=== PATIENT | male | born 1980 | race Hispanic/Latino ===

== ENCOUNTER 2017-05-23 13:18 | Emergency (ER) | payer MEDICARE, MEDICAID ==
[2017-05-23 13:47] VITALS: BP 140/92; PULSE 126; RESP 16; TEMP 97; O2SAT 97
--- NOTE | 2017-05-23 14:25 | ED PDOC ---
HPI: General Adult Time Seen by Provider: 05/23/17 14:09 Chief Complaint (Nursing): Upper Extremity Problem/Injury Chief Complaint (Provider): Tingling History Per: Patient History/Exam Limitations: no limitations Onset/Duration Of Symptoms: Days (Tues) Current Symptoms Are (Timing): Still Present Additional Complaint(s): Pt. is an alcoholic. Stopped drinking Saturday. Tues started getting tingling in fingers in both hands and both feet. No chest pain, dyspnea, weakness, headaches, leg pain, dizziness, abd pain, back pain. No drugs. No injury. Vision is clear. Past Medical History Vital Signs: Last Vital Signs Temp 97.0 F L 05/23/17 13:42 Pulse 126 H 05/23/17 13:42 Resp 16 05/23/17 13:42 BP 140/92 H 05/23/17 13:42 Pulse Ox 97 05/23/17 14:27 - Medical History PMH: Bipolar Disorder, HTN Denies: Diabetes, Hepatitis, HIV, Seizures, Sexually Transmitted Disease Other PMH: anxiety - Surgical History Surgical History: No Surg Hx - Family History Family History: States: Unknown Family Hx - Social History Current smoker - smoking cessation education provided: No Alcohol: > 2 Drinks/Day - Immunization History Hx Tetanus Toxoid Vaccination: No Hx Influenza Vaccination: No Hx Pneumococcal Vaccination: No - Home Medications Home Medications: Ambulatory Orders Medication Instructions Recorded Escitalopram [Lexapro] 20 mg PO DAILY 06/12/16 Losartan/Hydrochlorothiazide 1 tab PO DAILY 06/12/16 [Losartan Potassium-Hydrochlorothiazide 12.5 M] Naltrexone [Revia] 50 mg PO DAILY 06/12/16 Naproxen [Naprosyn] 500 mg PO DAILY 06/12/16 Zolpidem [Ambien] 5 mg PO HS PRN 06/12/16 amLODIPine [Norvasc] 5 mg PO DAILY 06/12/16 - Allergies Allergies/Adverse Reactions: Allergies Allergy/AdvReac Type Severity Reaction Status Date / Time No Known Allergies Allergy Verified 06/12/16 18:47 Review of Systems ROS Statement: Except As Marked, All Systems Reviewed And Found Negative Physical Exam - Reviewed Nursing Documentation Reviewed: Yes Vital Signs Reviewed: Yes - Physical Exam Appears: Positive for: Non-toxic, No Acute Distress Head Exam: Positive for: ATRAUMATIC, NORMAL INSPECTION, NORMOCEPHALIC Skin: Positive for: Normal Color, Warm, DRY Eye Exam: Positive for: EOMI, Normal appearance, PERRL ENT: Positive for: Normal ENT Inspection Neck: Positive for: Normal, Painless ROM, Supple Cardiovascular/Chest: Positive for: Chest Non Tender, Tachycardia (mild ). Negative for: Edema Respiratory: Positive for: CNT, Normal Breath Sounds Pulses-Radial (L): 2+ Pulses-Radial (R): 2+ Gastrointestinal/Abdominal: Positive for: Normal Exam, Bowel Sounds, Soft. Negative for: Tenderness Back: Positive for: Normal Inspection. Negative for: L CVA Tenderness, R CVA Tenderness Extremity: Positive for: Normal ROM. Negative for: Tenderness, Pedal Edema Neurologic/Psych: Positive for: Alert, target protection specialist II-XII, Oriented. Negative for: Motor/Sensory Deficits, Aphasia, Facial Droop - Laboratory Results Result Diagrams: 05/23/17 14:57 05/23/17 14:57 Interpretation Of Abn Labs: 3.2 k - ECG O2 Sat by Pulse Oximetry: 97 Pulse Ox Interpretation: Normal - Progress ED Course And Treament: 1552: Stable. AAOx3. Pain free. Liver enzymes elevated from chronic etoh abuse. Pt. aware to fu with pcp and gi. Tolerated po. Disposition - Clinical Impression Clinical Impression: Hypokalemia, Elevated liver enzymes, Paresthesia - Patient ED Disposition Is Patient to be Admitted: No Counseled Patient/Family Regarding: Studies Performed, Diagnosis, Need For Followup - Disposition Referrals: [facility] [Outside] - 05/24/17 Damon Escamilla MD [Medical Doctor] - 05/24/17 Disposition: Routine/Home Disposition Time: 15:30 Condition: STABLE Additional Instructions: You have elevated liver enzymes. Make sure to see the doctor without fail in 3 days. Return if not better in 3 days. Instructions: Paresthesias (DC), Hypokalemia (DC)
[2017-05-23] MEDS ORDERED: Lactated Ringer's 1,000 ML IV SCH (14:30)
[2017-05-23 15:12] LABS: BASO % 0.4 % (0.0-2.0); EOS % 0.5 % (0.0-4.0); LYMPH # 0.8 K/uL (1.0-4.3); LYMPH % 11.1 % (20.0-40.0); MEAN CELL VOLUME 90.2 fl (80.0-94.0); MEAN CORPUSCULAR HEMOGLOBIN 31.2 pg (27.0-31.0); MEAN CORPUSCULAR HGB CONC 34.5 g/dL (33.0-37.0); MEAN PLATELET VOLUME 7.9 fl (7.2-11.7); MONO # 0.8 K/uL (0.0-0.8); MONO % 11.3 % (0.0-10.0); NEUT # 5.8 K/uL (1.8-7.0); NEUT % 76.7 % (50.0-75.0); NRBC % 0.1 % (0.0-0.0); RBC 4.82 Mil/uL (4.40-5.90); RED CELL DISTRIBUTION WIDTH 13.3 % (11.5-14.5); WHITE BLOOD COUNT 7.5 K/uL (4.8-10.8)
[2017-05-23 15:29] LABS: ALB/GLOB RATIO 1.4 (1.0-2.1); ALT/SGPT 97 U/L (21-72); AST/SGOT 157 U/L (17-59); BLOOD UREA NITROGEN 12 mg/dl (9-20); CALCIUM 9.3 mg/dL (8.4-10.2); GFR AFRICAN-AMERICAN > 60; GFR NON-AFRICAN AMERICAN > 60; MAGNESIUM 1.6 MG/DL (1.6-2.3)
[2017-05-23] MEDS ORDERED: Potassium Chloride 20 mEq ER Tab PO STA (15:47)
[2017-05-23] MEDS ORDERED: Potassium Chloride 20 mEq ER Tab PO ONE ×2 (15:59→16:01)
[2017-05-23 16:05] LABS: BARBITURATES, UR NEGATIVE (NEGATIVE); BENZODIAZEPINES, UR NEGATIVE (NEGATIVE); OPIATES, UR NEGATIVE (NEGATIVE); PHENCYCLIDINE, UR NEGATIVE (NEGATIVE)
== END 2017-05-23 16:36 | disposition home or self-care (01) ==
LOC: H.ER 13:18
DX: R20.2 Paresthesia of skin (principal); E87.6 Hypokalemia; R94.5 Abnormal results of liver function studies; F31.9 Bipolar disorder, unspecified; F41.9 Anxiety disorder, unspecified; I10 Essential (primary) hypertension
CPT/HCPCS: 80053; 83735; 84100; 85025; 85610; 85730; 99281; G0480; J7120

== ENCOUNTER 2017-09-19 15:30 | Inpatient (IN) | payer MEDICARE, MEDICAID ==
--- NOTE | 2017-09-19 16:05 | ED PDOC ---
HPI: Seizure Time Seen by Provider: 09/19/17 15:44 Chief Complaint (Nursing): Seizure Chief Complaint (Provider): Seizure History Per: Patient History/Exam Limitations: no limitations Number Of Seizures: One Length Of Seizures (Duration): Unknown Associated Symptoms: Bit Tongue Additional Complaint(s): 37 year old male was reportedly found in the bathroom of a police station. Patient appears to be amnestic and states the last thing he remembers is using the restroom and thought to have had a seizure. Denies prior history of seizure. In addition, patient complains of headache and throat pain. Patient admits to drinking daily and does not remember when his last drink was. PMD: None Provided Past Medical History Reviewed: Historical Data, Nursing Documentation, Vital Signs Vital Signs: Last Vital Signs Temp 99 F 09/19/17 15:33 Pulse 112 H 09/19/17 15:33 Resp 19 09/19/17 15:33 BP 148/87 09/19/17 15:33 Pulse Ox 98 09/19/17 17:48 - Medical History PMH: Bipolar Disorder, HTN Denies: Diabetes, Hepatitis, HIV, Seizures, Sexually Transmitted Disease - Surgical History Surgical History: No Surg Hx - Family History Family History: States: Unknown Family Hx - Social History Alcohol: > 2 Drinks/Day Drugs: Denies - Immunization History Hx Tetanus Toxoid Vaccination: No Hx Influenza Vaccination: No Hx Pneumococcal Vaccination: No - Home Medications Home Medications: Ambulatory Orders Medication Instructions Recorded Escitalopram [Lexapro] 20 mg PO DAILY 06/12/16 Losartan/Hydrochlorothiazide 1 tab PO DAILY 06/12/16 [Losartan Potassium-Hydrochlorothiazide 12.5 M] Naltrexone [Revia] 50 mg PO DAILY 06/12/16 Naproxen [Naprosyn] 500 mg PO DAILY 06/12/16 Zolpidem [Ambien] 5 mg PO HS PRN 06/12/16 amLODIPine [Norvasc] 5 mg PO DAILY 06/12/16 - Allergies Allergies/Adverse Reactions: Allergies Allergy/AdvReac Type Severity Reaction Status Date / Time No Known Allergies Allergy Verified 09/19/17 15:33 Review of Systems ROS Statement: Except As Marked, All Systems Reviewed And Found Negative ENT: Positive for: Throat Pain Neurological: Positive for: Seizures, Headache Physical Exam - Reviewed Nursing Documentation Reviewed: Yes Vital Signs Reviewed: Yes - Physical Exam Appears: Positive for: Non-toxic, No Acute Distress Head Exam: Positive for: NORMAL INSPECTION (no scalp hematoma) Skin: Positive for: Normal Color, Warm, Dry Eye Exam: Positive for: Normal appearance, EOMI, PERRL ENT: Positive for: Other (contusion to the right tongue; admedus tonsillar pillars (right > left) with erythema) Neck: Positive for: Normal, Painless ROM, Supple Cardiovascular/Chest: Positive for: Tachycardia Respiratory: Positive for: Normal Breath Sounds. Negative for: Respiratory Distress Gastrointestinal/Abdominal: Positive for: Normal Exam, Soft. Negative for: Tenderness Back: Positive for: Normal Inspection. Negative for: L CVA Tenderness, R CVA Tenderness, Vertebral Tenderness Extremity: Positive for: Normal ROM. Negative for: Pedal Edema, Deformity Neurologic/Psych: Positive for: Alert, Oriented, Other (Poor insight and appears post-ictal) - Laboratory Results Result Diagrams: 09/19/17 16:30 09/19/17 16:30 - ECG ECG Rhythm: Positive for: Sinus Tachycardia Rate: 112 O2 Sat by Pulse Oximetry: 98 (RA) Pulse Ox Interpretation: Normal Medical Decision Making Medical Decision Making: -- Workup for possible new onset seizure. -- evaluate for pharyngitis, rule out DEMI CHEF. Time: 1618 CXR RESULTS FINDINGS: LUNGS: The lungs are clear. PLEURA: No significant pleural effusion identified, no pneumothorax apparent. CARDIOVASCULAR: Normal. OSSEOUS STRUCTURES: No significant abnormalities. VISUALIZED UPPER ABDOMEN: Normal. OTHER FINDINGS: There is severe gaseous distension of the left hemicolon. IMPRESSION: No active pulmonary disease. Severe gaseous distension of the left hemicolon. Clinical follow-up is advised. Time: [address] RESULTS FINDINGS: HEMORRHAGE: No intracranial hemorrhage. BRAIN: Evaluation is limited due to extensive beam hardening artifacts. Castelan-white matter differentiation is preserved. There is no mass, mass effect or abnormal extra-axial fluid collection. There is no territorial infarction. VENTRICLES: There is mild is advanced global parenchymal volume loss and proportionate enlargement of the ventricles and cortical sulci. CALVARIUM: There is no calvarial fracture or extracranial soft tissue swelling. PARANASAL SINUSES: Predominantly clear. MASTOID AIR CELLS: Predominantly clear. OTHER FINDINGS: None. IMPRESSION: Limited evaluation due to extensive beam hardening artifacts. No acute intracranial abnormality. Mild age advanced global parenchymal volume loss. Time: [address] SPINE RESULTS FINDINGS: VERTEBRAE: There is mild reversal of normal cervical lordosis with cervical kyphosis. Vertebral alignment is normal. There is no acute fracture or traumatic anterior listhesis. The craniocervical junction is normal. The atlantoaxial joint is normal. Bone mineralization is normal. DISCS/SPINAL CANAL/NEURAL FORAMINA: There is mild multilevel degenerative disc disease due to combination of disc osteophyte complexes, uncovertebral joint hypertrophy and multilevel facet arthropathy without significant neural foraminal or spinal canal stenosis. PARASPINAL SOFT TISSUES: Normal. No prevertebral soft tissue thickening. OTHER FINDINGS: No apical pneumothorax. IMPRESSION: No acute fracture or traumatic anterior listhesis. Mild reversal of normal cervical lordosis which may be positional, related to muscle spasm or ligamentous injury. Scribe Attestation: Documented by Iwona Vuong, acting as a scribe for Dr. Matthieu Chung III. Provider Scribe Attestation: All medical record entries made by the Scribe were at my direction and personally dictated by me. I have reviewed the chart and agree that the record accurately reflects my personal performance of the history, physical exam, medical decision making, and the department course for this patient. I have also personally directed, reviewed and agree with the discharge instructions and disposition. Disposition - Disposition Forms: [employer] (Slovenian)
--- NOTE | 2017-09-19 16:20 | RAD ---
HISTORY: SOB COMPARISON: No prior. FINDINGS: LUNGS: The lungs are clear. PLEURA: No significant pleural effusion identified, no pneumothorax apparent. CARDIOVASCULAR: Normal. OSSEOUS STRUCTURES: No significant abnormalities. VISUALIZED UPPER ABDOMEN: Normal. OTHER FINDINGS: There is severe gaseous distension of the left hemicolon. IMPRESSION: No active pulmonary disease. Severe gaseous distension of the left hemicolon. Clinical follow-up is advised.
[2017-09-19 16:42] LABS: BASO % 0.3 % (0.0-2.0); HEMOGLOBIN 14.6 g/dL (12.0-18.0); LYMPH # 0.2 K/uL (1.0-4.3); LYMPH % 2.6 % (20.0-40.0); MEAN CELL VOLUME 89.8 fl (80.0-94.0); MEAN CORPUSCULAR HEMOGLOBIN 31.1 pg (27.0-31.0); MEAN CORPUSCULAR HGB CONC 34.6 g/dL (33.0-37.0); MEAN PLATELET VOLUME 7.4 fl (7.2-11.7); MONO # 0.5 K/uL (0.0-0.8); NEUT # 7.5 K/uL (1.8-7.0); NEUT % 91.1 % (50.0-75.0); PLATELET COUNT 132 K/uL (130-400); RBC 4.71 Mil/uL (4.40-5.90); RED CELL DISTRIBUTION WIDTH 16.6 % (11.5-14.5); WHITE BLOOD COUNT 8.3 K/uL (4.8-10.8)
--- NOTE | 2017-09-19 16:43 | CT ---
PROCEDURE: CT HEAD WITHOUT CONTRAST. HISTORY: r/o ICH COMPARISON: None available. TECHNIQUE: Axial computed tomography images were obtained through the head/brain without intravenous contrast. Radiation dose: Total exam DLP = 1063.82 mGy-cm. This CT exam was performed using one or more of the following dose reduction techniques: Automated exposure control, adjustment of the mA and/or kV according to patient size, and/or use of iterative reconstruction technique. FINDINGS: HEMORRHAGE: No intracranial hemorrhage. BRAIN: Evaluation is limited due to extensive beam hardening artifacts. Castelan-white matter differentiation is preserved. There is no mass, mass effect or abnormal extra-axial fluid collection. There is no territorial infarction. VENTRICLES: There is mild is advanced global parenchymal volume loss and proportionate enlargement of the ventricles and cortical sulci. CALVARIUM: There is no calvarial fracture or extracranial soft tissue swelling. PARANASAL SINUSES: Predominantly clear. MASTOID AIR CELLS: Predominantly clear. OTHER FINDINGS: None. IMPRESSION: Limited evaluation due to extensive beam hardening artifacts. No acute intracranial abnormality. Mild age advanced global parenchymal volume loss.
--- NOTE | 2017-09-19 16:46 | CT ---
PROCEDURE: CT Cervical Spine without contrast HISTORY: trauma r/o fx COMPARISON: None available. TECHNIQUE: Axial computed tomography images were obtained of the cervical spine without the use of intravenous contrast. Coronal and sagittal reformatted images were created and reviewed. Radiation dose: Total exam DLP = 411.42 mGy-cm. This CT exam was performed using one or more of the following dose reduction techniques: Automated exposure control, adjustment of the mA and/or kV according to patient size, and/or use of iterative reconstruction technique. FINDINGS: VERTEBRAE: There is mild reversal of normal cervical lordosis with cervical kyphosis. Vertebral alignment is normal. There is no acute fracture or traumatic anterior listhesis. The craniocervical junction is normal. The atlantoaxial joint is normal. Bone mineralization is normal. DISCS/SPINAL CANAL/NEURAL FORAMINA: There is mild multilevel degenerative disc disease due to combination of disc osteophyte complexes, uncovertebral joint hypertrophy and multilevel facet arthropathy without significant neural foraminal or spinal canal stenosis. PARASPINAL SOFT TISSUES: Normal. No prevertebral soft tissue thickening. OTHER FINDINGS: No apical pneumothorax. IMPRESSION: No acute fracture or traumatic anterior listhesis. Mild reversal of normal cervical lordosis which may be positional, related to muscle spasm or ligamentous injury.
[2017-09-19 16:52] LABS: ALB/GLOB RATIO 1.3 (1.0-2.1); ALBUMIN 4.9 g/dL (3.5-5.0); ALT/SGPT 64 U/L (21-72); AST/SGOT 116 U/L (17-59); BLOOD UREA NITROGEN 9 mg/dl (9-20); CALCIUM 9.4 mg/dL (8.4-10.2); GFR AFRICAN-AMERICAN > 60; GFR NON-AFRICAN AMERICAN > 60
[2017-09-19 16:56] LABS: PARTIAL THROMBOPLASTIN TIME 26.9 Seconds (25.6-37.1); PROTHROMBIN TIME 10.8 Seconds (9.8-13.1)
[2017-09-19 17:27] LABS: BARBITURATES, UR NEGATIVE (NEGATIVE); BENZODIAZEPINES, UR NEGATIVE (NEGATIVE); OPIATES, UR NEGATIVE (NEGATIVE); PHENCYCLIDINE, UR NEGATIVE (NEGATIVE)
[2017-09-19] MEDS ORDERED: Sodium Chloride 0.9% 50 ML IV ONE (18:14)
[2017-09-19] MEDS ORDERED: Iohexol 300 100 ML IJ ONE (18:14)
[2017-09-19 19:51] LABS: BANDS 4 % (0-2); LYMPHOCYTE 4 % (20-50); MONOCYTE 6 % (0-10); NEUTROPHIL 86 % (42-75); PLATELET ESTIMATE NORMAL (NORMAL); TOTAL CELLS COUNTED 100
[2017-09-19 19:52] LABS: HYPOCHROMIC SLIGHT; SMUDGE CELLS PRESENT; TOXIC GRANULATION PRESENT
[2017-09-19] MEDS ORDERED: Patient's Own Med (Losartan/Hydrochlorothiazide [Hyzaar 100-12.5 Tablet] 1 TAB) PO SCH (22:00)
[2017-09-19] MEDS: Sodium Chloride 0.9% 1,000 ML IV SCH (22:26)
[2017-09-20] MEDS ORDERED: Phenytoin 100 mg/2 ml Inj ONE (01:12)
[2017-09-20] MEDS: Phenytoin 100 mg/2 ml Inj IVP SCH ×3 (01:15→16:27)
[2017-09-20 05:43] LABS: HEMOGLOBIN 14.5 g/dL (12.0-18.0); MEAN CELL VOLUME 90.9 fl (80.0-94.0); MEAN CORPUSCULAR HEMOGLOBIN 30.9 pg (27.0-31.0); RBC 4.71 Mil/uL (4.40-5.90); RED CELL DISTRIBUTION WIDTH 16.1 % (11.5-14.5); WHITE BLOOD COUNT 6.2 K/uL (4.8-10.8)
[2017-09-20 06:12] LABS: LDL CHOLESTEROL 92 mg/dL (0-129)
[2017-09-20 06:13] LABS: T4 6.42 ug/dl (5.5-11.0)
[2017-09-20 06:27] LABS: T3 0.859 nmol/L (1.49-2.60)
[2017-09-20 06:31] LABS: ALB/GLOB RATIO 1.2 (1.0-2.1); ALBUMIN 4.5 g/dL (3.5-5.0); ALT/SGPT 56 U/L (21-72); AST/SGOT 111 U/L (17-59); BLOOD UREA NITROGEN 7 mg/dl (9-20); CALCIUM 9.3 mg/dL (8.4-10.2); GFR AFRICAN-AMERICAN > 60; GFR NON-AFRICAN AMERICAN > 60; HDL CHOLESTEROL 140 MG/DL (30-70)
[2017-09-20] MEDS: Omega-3-Acid Ethyl Esters 1 GM Cap PO SCH ×2 (08:10→21:14)
--- NOTE | 2017-09-20 08:27 | CT ---
PROCEDURE: CT NECK WITH CONTRAST HISTORY: dysphagia. throat pain COMPARISON: Cervical spine CT without contrast 09/19/2017. TECHNIQUE: CT of the neck with intravenous contrast. Coronal and sagittal reformats generated. Intravenous contrast dose: Omnipaque 300, 80 cc Radiation dose: DLP 473.29 mGy-cm This CT exam was performed using one or more of the following dose reduction techniques: Automated exposure control, adjustment of the mA and/or kV according to patient size, and/or use of iterative reconstruction technique. FINDINGS: NASOPHARYNX: Unremarkable. SUPRAHYOID NECK: Limited motion artifact obscures the upper oropharynx. Unremarkable, oral cavity, parapharyngeal space and retropharyngeal space. INFRAHYOID NECK: Unremarkable larynx, hypopharynx, and supraglottic space. Vocal cords intact. MASS: None identified. GLANDS: Parotid and submandibular glands unremarkable. Normal size thyroid gland, without nodule. LYMPH NODES: Mild bilateral lymphadenopathy is appreciated including a 2.4 x 1.3 cm right jugular digastric lymph node and a left jugulodigastric lymph node measuring 2.5 x 1.0. CERVICAL SPINE: Reversal cervical curvature with limited anterior spondylosis at the mid cervical spine. See separate cervical spine CT report 09/20/2015. VASCULAR STRUCTURES: Unremarkable. OTHER FINDINGS: None. IMPRESSION: Limited lymphadenopathy as discussed above, at the bilateral jugulodigastric distribution. Limited motion artifact obscures the upper or fracture of the remainder of the supra and infrahyoid neck appear unremarkable no gross mass identified. Reversal of cervical curvature is appreciated.
--- NOTE | 2017-09-20 08:43 | CP.PCM.HP ---
History of Present Illness - History of Present Illness History of Present Illness: CC: new onset seizures HPI: 37 y/o man w/ pmh of HTN and bipolar disorder presented to the ED s/p new onset seizures. Patient has no recollection of event. Prior to seizure patient reports he went to police precinct because he wanted help. Patient says he then went to the bathroom and felt his head started to hurt and then no memory of what happened afterwards. Patient awoke noticed that he bit his tongue but denies urinary or bowel incontinence. Patient denies previous history of seizure. Patient reports drinking alcohol daily consisting of beer and some liquor. Patient reports binge drinking the day before the seizure occurred. Patient currently reports drowsiness and tongue pain after biting his tongue during seizure episode. The patient currently denies headaches, chest pain, SOB, abdominal pain, nausea, vomiting, diarrhea, dysuria, or fever. PMD: Dr. Jean PMH: HTN and bipolar disorder meds: see med list allergies: NKDA PSH: cardiac surgery as an Fam: mother HTN, father murdered in [place] when patient was 15, unsure of family history of seizure/epilepsy SOC: denies smoking and drugs, drinking alcohol daily with binge drinking episodes (last binge drink episode 1 day prior to seizure) ROS: 12 points assessed and negative unless otherwise reported in HPI Patient seen and examined this morning at bedside w/ Dr. Martinez Present on Admission - Present on Admission Any Indicators Present on Admission: No History of DVT/PE: No History of Uncontrolled Diabetes: No Urinary Catheter: No Decubitus Ulcer Present: No Review of Systems - Review of Systems All systems: reviewed and no additional remarkable complaints except - Constitutional Constitutional: absent: Chills, Fever - EENT Eyes: absent: Change in Vision Additional comments: tongue pain - Cardiovascular Cardiovascular: absent: Chest Pain - Respiratory Respiratory: absent: Dyspnea - Gastrointestinal Gastrointestinal: absent: Abdominal Pain, Diarrhea, Nausea, Vomiting - Genitourinary Genitourinary: absent: Dysuria - Integumentary Integumentary: absent: Rash - Neurological Neurological: absent: Dizziness, Headaches Past Patient History - Infectious Disease Hx of Infectious Diseases: None - Past Social History Smoking Status: Never Smoked - CARDIAC Hx Cardiac Disorders: Yes Hx Hypercholesterolemia: Yes Hx Hypertension: Yes - PULMONARY Hx Tuberculosis: No - NEUROLOGICAL Hx Seizures: Yes (new onset 09/19/17) - HEMATOLOGICAL/ONCOLOGICAL Hx Human Immunodeficiency Virus (HIV): No - MUSCULOSKELETAL/RHEUMATOLOGICAL Hx Falls: Yes - GENITOURINARY/GYNECOLOGICAL Hx Sexually Transmitted Disorders: No - PSYCHIATRIC Hx Anxiety: Yes Hx Bipolar Disorder: Yes Hx Substance Use: No - SURGICAL HISTORY Hx Surgeries: Yes Other/Comment: cardiac sx as a child - ANESTHESIA Hx Anesthesia: Yes Hx Anesthesia Reactions: No Meds Allergies/Adverse Reactions: Allergies Allergy/AdvReac Type Severity Reaction Status Date / Time No Known Allergies Allergy Verified 09/19/17 15:33 Physical Exam - Constitutional Appears: Non-toxic, No Acute Distress - Head Exam Head Exam: ATRAUMATIC, NORMAL INSPECTION, NORMOCEPHALIC - Eye Exam Eye Exam: Normal appearance - ENT Exam ENT Exam: Mucous Membranes Moist Additional comments: self inflicted laceration of tongue on right side s/p seizure - Neck Exam Neck exam: Positive for: Full Rom. Negative for: Tenderness - Respiratory Exam Respiratory Exam: Clear to Auscultation Bilateral. absent: Accessory Muscle Use , Decreased Breath Sounds, Rales, Rhonchi, Wheezes, Respiratory Distress - Cardiovascular Exam Cardiovascular Exam: REGULAR RHYTHM. absent: Tachycardia - GI/Abdominal Exam GI & Abdominal Exam: Normal Bowel Sounds, Soft. absent: Distended, Tenderness - Extremities Exam Extremities exam: Negative for: calf tenderness - Neurological Exam Neurological exam: Alert, CN II-XII Intact, Normal Gait, Oriented x3 - Skin Skin Exam: Dry, Normal Color, Warm Results - Vital Signs Recent Vital Signs: Last Vital Signs Temp 98.6 F 09/20/17 07:58 Pulse 83 09/20/17 08:11 Resp 18 09/20/17 07:58 BP 140/95 H 09/20/17 08:11 Pulse Ox 98 09/20/17 07:58 - Labs Result Diagrams: 09/20/17 04:50 09/20/17 04:50 Labs: Laboratory Results - last 24 hr 09/19/17 09/19/17 09/19/17 15:56 16:30 16:30 WBC 8.3 RBC 4.71 Hgb 14.6 Hct 42.3 MCV 89.8 MCH 31.1 H MCHC 34.6 RDW 16.6 H Plt Count 132 MPV 7.4 Neut % (Auto) 91.1 H Lymph % (Auto) 2.6 L [place] % (Auto) 6.0 Eos % (Auto) 0.0 Baso % (Auto) 0.3 Neut # (Auto) 7.5 H Lymph # (Auto) 0.2 L [place] # (Auto) 0.5 Eos # (Auto) 0.0 Baso # (Auto) 0.0 Neutrophils % (Manual) 86 H Band Neutrophils % 4 H Lymphocytes % (Manual) 4 L Monocytes % (Manual) 6 Smudge Cells Present Toxic Granulation Present Platelet Estimate Normal Hypochromasia (manual) Slight PT INR APTT Sodium 131 L Potassium 3.3 L Chloride 90 L Carbon Dioxide 28 Anion Gap 16 BUN 9 Creatinine 0.9 Est GFR ( Amer) > 60 Est GFR (Non-Af Amer) > 60 POC Glucose (mg/dL) 196 H Random Glucose 167 H Calcium 9.4 Total Bilirubin 3.8 H AST 116 H D ALT 64 Alkaline Phosphatase 108 Troponin I 0.1220 H* Total Protein 8.8 H Albumin 4.9 Globulin 3.9 Albumin/Globulin Ratio 1.3 Triglycerides Cholesterol LDL Cholesterol Direct HDL Cholesterol Vitamin B12 Thyroxine (T4) Total T3 TSH 3rd Generation Urine Opiates Screen Urine Methadone Screen Ur Barbiturates Screen Ur Phencyclidine Scrn Ur Amphetamines Screen U Benzodiazepines Scrn U Oth Cocaine Metabols U Cannabinoids Screen Alcohol, Quantitative < 10 09/19/17 09/19/17 09/19/17 16:30 16:50 23:03 WBC RBC Hgb Hct MCV MCH MCHC RDW Plt Count MPV Neut % (Auto) Lymph % (Auto) [place] % (Auto) Eos % (Auto) Baso % (Auto) Neut # (Auto) Lymph # (Auto) [place] # (Auto) Eos # (Auto) Baso # (Auto) Neutrophils % (Manual) Band Neutrophils % Lymphocytes % (Manual) Monocytes % (Manual) Smudge Cells Toxic Granulation Platelet Estimate Hypochromasia (manual) PT 10.8 INR 1.0 APTT 26.9 Sodium Potassium Chloride Carbon Dioxide Anion Gap BUN Creatinine Est GFR ( Amer) Est GFR (Non-Af Amer) POC Glucose (mg/dL) Random Glucose Calcium Total Bilirubin AST ALT Alkaline Phosphatase Troponin I 0.0830 Total Protein Albumin Globulin Albumin/Globulin Ratio Triglycerides Cholesterol LDL Cholesterol Direct HDL Cholesterol Vitamin B12 Thyroxine (T4) Total T3 TSH 3rd Generation Urine Opiates Screen Negative Urine Methadone Screen Negative Ur Barbiturates Screen Negative Ur Phencyclidine Scrn Negative Ur Amphetamines Screen Negative U Benzodiazepines Scrn Negative U Oth Cocaine Metabols Negative U Cannabinoids Screen Negative Alcohol, Quantitative 09/20/17 09/20/17 09/20/17 04:50 04:50 05:47 WBC 6.2 RBC 4.71 Hgb 14.5 Hct 42.8 MCV 90.9 MCH 30.9 MCHC 34.0 RDW 16.1 H Plt Count 130 MPV Neut % (Auto) Lymph % (Auto) [place] % (Auto) Eos % (Auto) Baso % (Auto) Neut # (Auto) Lymph # (Auto) [place] # (Auto) Eos # (Auto) Baso # (Auto) Neutrophils % (Manual) Band Neutrophils % Lymphocytes % (Manual) Monocytes % (Manual) Smudge Cells Toxic Granulation Platelet Estimate Hypochromasia (manual) PT INR APTT Sodium 134 Potassium 2.9 L Chloride 96 L Carbon Dioxide 25 Anion Gap 16 BUN 7 L Creatinine 0.8 Est GFR ( Amer) > 60 Est GFR (Non-Af Amer) > 60 POC Glucose (mg/dL) Random Glucose 90 Calcium 9.3 Total Bilirubin 3.9 H AST 111 H ALT 56 Alkaline Phosphatase 93 Troponin I 0.0430 Total Protein 8.2 Albumin 4.5 Globulin 3.7 Albumin/Globulin Ratio 1.2 Triglycerides 78 Cholesterol 275 H LDL Cholesterol Direct 92 HDL Cholesterol 140 H Vitamin B12 434 Thyroxine (T4) 6.42 Total T3 0.859 L TSH 3rd Generation 3.94 Urine Opiates Screen Urine Methadone Screen Ur Barbiturates Screen Ur Phencyclidine Scrn Ur Amphetamines Screen U Benzodiazepines Scrn U Oth Cocaine Metabols U Cannabinoids Screen Alcohol, Quantitative Assessment & Plan (1) New onset seizure Status: Acute (2) Hypokalemia Status: Acute (3) HTN (hypertension) Status: Chronic (4) Bipolar disorder Status: Chronic - Assessment and Plan (Free Text) Plan: afebrile, non-tachycardic, normotensive Neurology consult ordered Cardiology consult ordered EKG: sinus tachycardia, no acute ST elevation/depression CXR: no active cardiolpulmonary disease process CT head: no acute intracranial hemorrhage or abnormality CT cervical spine: no acute fracture or trauma CT soft tissue neck: mild bilateral lymphadenopathy CBC and PT/INR/aPTT WNL CMP: 134/2.9, 96/25, 7/0.8, glucose 90, [id number], ALT 56, alk phos 93 troponin 1st 0.1220, 2nd 0.0830, 3rd 0.0430 CPK: 655 alcohol level <10 urine toxicology negative phenytoin 100 mg IV Q8h IVF NS 1L @ 80 mL/hr c/w home medication f/u CBC, CMP, CPK, phenytoin level in AM prophylactic measures: DVT SCDs monitor for acute changes seizure precautions monitor for alcohol withdrawal
[2017-09-20] MEDS: Potassium Chloride 20 mEq ER Tab PO SCH ×2 (09:07→16:28)
[2017-09-20] MEDS: Mag&Al/Simet/Diphen/Lido 237 ML KIT PO SCH ×3 (09:08→21:16)
[2017-09-20] MEDS: Sodium Chloride 0.9% 1,000 ML IV SCH ×3 (10:15→21:16)
--- NOTE | 2017-09-20 11:10 | CARD ---
APPROVED REPORT EKG Measurement Heart [id number] <Conclusion> Normal sinus rhythm Nonspecific T wave abnormality Abnormal ECG
--- NOTE | 2017-09-20 15:19 | CP.PCM.CON ---
History of Present Illness - History of Present Illness History of Present Illness: Consultation for possible syncope vs. seizures / hx of cardiac surgery HPI: Review of Systems - Review of Systems Systems not reviewed;Unavailable: Acuity of Condition - Constitutional Constitutional: As Per HPI - EENT Eyes: As Per HPI Ears: As Per HPI Nose/Mouth/Throat: As Per HPI - Cardiovascular Cardiovascular: As Per HPI - Respiratory Respiratory: As Per HPI - Gastrointestinal Gastrointestinal: As Per HPI - Genitourinary Genitourinary: As Per HPI - Reproductive: Male Reproductive:Male: As Per HPI - Musculoskeletal Musculoskeletal: As Per HPI - Integumentary Integumentary: As Per HPI - Neurological Neurological: As Per HPI - Psychiatric Psychiatric: As Per HPI - Endocrine Endocrine: As Per HPI - Hematologic/Lymphatic Hematologic: As Per HPI Past Patient History - Infectious Disease Hx of Infectious Diseases: None - Past Social History Smoking Status: Never Smoked - CARDIAC Hx Cardiac Disorders: Yes Hx Hypercholesterolemia: Yes Hx Hypertension: Yes - PULMONARY Hx Tuberculosis: No - NEUROLOGICAL Hx Seizures: Yes (new onset 09/19/17) - HEMATOLOGICAL/ONCOLOGICAL Hx Human Immunodeficiency Virus (HIV): No - MUSCULOSKELETAL/RHEUMATOLOGICAL Hx Falls: Yes - GENITOURINARY/GYNECOLOGICAL Hx Sexually Transmitted Disorders: No - PSYCHIATRIC Hx Anxiety: Yes Hx Bipolar Disorder: Yes Hx Substance Use: No - SURGICAL HISTORY Hx Surgeries: Yes Other/Comment: cardiac sx as a child - ANESTHESIA Hx Anesthesia: Yes Hx Anesthesia Reactions: No Meds Allergies/Adverse Reactions: Allergies Allergy/AdvReac Type Severity Reaction Status Date / Time No Known Allergies Allergy Verified 09/19/17 15:33 - Medications Medications: Current Medications Acetaminophen (Tylenol 325mg Tab) 650 mg PO Q6 PRN PRN Reason: pain,temp Last Admin: 09/19/17 22:26 Dose: 650 mg Amlodipine Besylate (Norvasc) 10 mg PO DAILY [facility] Last Admin: 09/20/17 08:11 Dose: 10 mg Atorvastatin Calcium (Lipitor) 40 mg PO DAILY [facility] Last Admin: 09/20/17 09:09 Dose: 40 mg Chlordiazepoxide (Librium) 50 mg PO Q8 [facility] Last Admin: 09/20/17 10:13 Dose: 50 mg Clonazepam (Klonopin) 0.5 mg PO HS [facility] Last Admin: 09/19/17 22:26 Dose: 0.5 mg Hydrochlorothiazide (Microzide) 12.5 mg PO DAILY [facility] Last Admin: 09/20/17 08:11 Dose: 12.5 mg Sodium Chloride (Sodium Chloride 0.9%) 1,000 mls @ 125 mls/hr IV .Q8H [facility] Stop: 09/20/17 21:59 Last Admin: 09/20/17 13:03 Dose: 125 mls/hr Lidocaine HCl (Lidocaine 2% Viscous) 15 ml PO Q6 [facility] Stop: 09/20/17 22:01 Last Admin: 09/20/17 10:12 Dose: 15 ml Losartan Potassium (Cozaar) 100 mg PO DAILY [facility] Last Admin: 09/20/17 08:11 Dose: 100 mg [id number] Ethyl Esters (Lovaza) 2 gm PO Q12 [facility] Last Admin: 09/20/17 08:10 Dose: 2 gm Phenytoin (Dilantin) 100 mg IVP Q8 [facility] Last Admin: 09/20/17 08:13 Dose: 100 mg Potassium Chloride (K-Dur 20 Meq Er Tab) 20 meq PO BID [facility] Last Admin: 09/20/17 09:07 Dose: 20 meq Risperidone (Risperdal Tab) 2 mg PO DAILY [facility] Last Admin: 09/20/17 08:11 Dose: 2 mg Saliva Substitute (First Magic Mouthwash) 10 ml PO Q6 [facility] Last Admin: 09/20/17 09:08 Dose: 10 ml Physical Exam - Constitutional Appears: Well - Head Exam Head Exam: ATRAUMATIC, NORMAL INSPECTION, NORMOCEPHALIC - Eye Exam Eye Exam: EOMI, Normal appearance, PERRL Pupil Exam: NORMAL ACCOMODATION, PERRL - ENT Exam ENT Exam: Mucous Membranes Moist, Normal Exam - Neck Exam Neck exam: Positive for: Normal Inspection - Respiratory Exam Respiratory Exam: Clear to Auscultation Bilateral, NORMAL BREATHING PATTERN - Cardiovascular Exam Cardiovascular Exam: REGULAR RHYTHM, +S1 - GI/Abdominal Exam GI & Abdominal Exam: Normal Bowel Sounds, Soft. absent: Tenderness - Extremities Exam Extremities exam: Positive for: normal inspection - Back Exam Back exam: NORMAL INSPECTION - Neurological Exam Neurological exam: Alert, CN II-XII Intact, Normal Gait, Oriented x3, Reflexes Normal - Psychiatric Exam Psychiatric exam: Normal Affect, Normal Mood - Skin Skin Exam: Dry, Intact, Normal Color, Warm Results - Vital Signs Recent Vital Signs: Last Vital Signs Temp 98.6 F 06/15/18 07:58 Pulse 83 09/20/17 08:11 Resp 18 09/20/17 07:58 BP 140/95 H 09/20/17 08:11 Pulse Ox 98 09/20/17 07:58 - Labs Result Diagrams: 09/20/17 04:50 09/20/17 04:50 Labs: Laboratory Results - last 24 hr 09/19/17 09/19/17 09/19/17 15:56 16:30 16:30 WBC 8.3 RBC 4.71 Hgb 14.6 Hct 42.3 MCV 89.8 MCH 31.1 H MCHC 34.6 RDW 16.6 H Plt Count 132 MPV 7.4 Neut % (Auto) 91.1 H Lymph % (Auto) 2.6 L Finney % (Auto) 6.0 Eos % (Auto) 0.0 Baso % (Auto) 0.3 Neut # (Auto) 7.5 H Lymph # (Auto) 0.2 L Finney # (Auto) 0.5 Eos # (Auto) 0.0 Baso # (Auto) 0.0 Neutrophils % (Manual) 86 H Band Neutrophils % 4 H Lymphocytes % (Manual) 4 L Monocytes % (Manual) 6 Smudge Cells Present Toxic Granulation Present Platelet Estimate Normal Hypochromasia (manual) Slight PT INR APTT Sodium 131 L Potassium 3.3 L Chloride 90 L Carbon Dioxide 28 Anion Gap 16 BUN 9 Creatinine 0.9 Est GFR ( Amer) > 60 Est GFR (Non-Af Amer) > 60 POC Glucose (mg/dL) 196 H Random Glucose 167 H Calcium 9.4 Total Bilirubin 3.8 H AST 116 H D ALT 64 Alkaline Phosphatase 108 Total Creatine Kinase Troponin I 0.1220 H* Total Protein 8.8 H Albumin 4.9 Globulin 3.9 Albumin/Globulin Ratio 1.3 Triglycerides Cholesterol LDL Cholesterol Direct HDL Cholesterol Vitamin B12 Thyroxine (T4) Total T3 TSH 3rd Generation Urine Opiates Screen Urine Methadone Screen Ur Barbiturates Screen Ur Phencyclidine Scrn Ur Amphetamines Screen U Benzodiazepines Scrn U Oth Cocaine Metabols U Cannabinoids Screen Alcohol, Quantitative < 10 09/19/17 09/19/17 09/19/17 16:30 16:50 23:03 WBC RBC Hgb Hct MCV MCH MCHC RDW Plt Count MPV Neut % (Auto) Lymph % (Auto) Finney % (Auto) Eos % (Auto) Baso % (Auto) Neut # (Auto) Lymph # (Auto) Finney # (Auto) Eos # (Auto) Baso # (Auto) Neutrophils % (Manual) Band Neutrophils % Lymphocytes % (Manual) Monocytes % (Manual) Smudge Cells Toxic Granulation Platelet Estimate Hypochromasia (manual) PT 10.8 INR 1.0 APTT 26.9 Sodium Potassium Chloride Carbon Dioxide Anion Gap BUN Creatinine Est GFR ( Amer) Est GFR (Non-Af Amer) POC Glucose (mg/dL) Random Glucose Calcium Total Bilirubin AST ALT Alkaline Phosphatase Total Creatine Kinase Troponin I 0.0830 Total Protein Albumin Globulin Albumin/Globulin Ratio Triglycerides Cholesterol LDL Cholesterol Direct HDL Cholesterol Vitamin B12 Thyroxine (T4) Total T3 TSH 3rd Generation Urine Opiates Screen Negative Urine Methadone Screen Negative Ur Barbiturates Screen Negative Ur Phencyclidine Scrn Negative Ur Amphetamines Screen Negative U Benzodiazepines Scrn Negative U Oth Cocaine Metabols Negative U Cannabinoids Screen Negative Alcohol, Quantitative 09/20/17 09/20/17 09/20/17 04:50 04:50 05:47 WBC 6.2 RBC 4.71 Hgb 14.5 Hct 42.8 MCV 90.9 MCH 30.9 MCHC 34.0 RDW 16.1 H Plt Count 130 MPV Neut % (Auto) Lymph % (Auto) Finney % (Auto) Eos % (Auto) Baso % (Auto) Neut # (Auto) Lymph # (Auto) Finney # (Auto) Eos # (Auto) Baso # (Auto) Neutrophils % (Manual) Band Neutrophils % Lymphocytes % (Manual) Monocytes % (Manual) Smudge Cells Toxic Granulation Platelet Estimate Hypochromasia (manual) PT INR APTT Sodium 134 Potassium 2.9 L Chloride 96 L Carbon Dioxide 25 Anion Gap 16 BUN 7 L Creatinine 0.8 Est GFR ( Amer) > 60 Est GFR (Non-Af Amer) > 60 POC Glucose (mg/dL) Random Glucose 90 Calcium 9.3 Total Bilirubin 3.9 H AST 111 H ALT 56 Alkaline Phosphatase 93 Total Creatine Kinase 665 H Troponin I 0.0430 Total Protein 8.2 Albumin 4.5 Globulin 3.7 Albumin/Globulin Ratio 1.2 Triglycerides 78 Cholesterol 275 H LDL Cholesterol Direct 92 HDL Cholesterol 140 H Vitamin B12 434 Thyroxine (T4) 6.42 Total T3 0.859 L TSH 3rd Generation 3.94 Urine Opiates Screen Urine Methadone Screen Ur Barbiturates Screen Ur Phencyclidine Scrn Ur Amphetamines Screen U Benzodiazepines Scrn U Oth Cocaine Metabols U Cannabinoids Screen Alcohol, Quantitative Assessment & Plan (1) Status post cardiac surgery Assessment and Plan: echo Status: Acute (2) New onset seizure Assessment and Plan: orthostatics Status: Acute (3) HTN (hypertension) Status: Chronic (4) Dyslipidemia Status: Acute
[2017-09-20] MEDS ORDERED: Gadodiamide 287 MG/ML VIAL (15ML) IV ONE (17:39)
--- NOTE | 2017-09-20 19:03 | CON ---
DATE: 09/20/2017 CHIEF COMPLAINT: New-onset seizure. HISTORY OF PRESENT ILLNESS: This is a 37-year-old man with history of hypertension, bipolar disorder, chronic ETOH abuse, had new-onset seizure when he went to the bathroom and his head was starting to hurt and do not remember what had happened that afterwards. Apparently, he noticed that his tongue was bitten. His mother does report he drinks consistently for months of beer and liquor and binge drinks and then stops suddenly. No history of any seizures. Febrile seizures as a child. No history of meningitis or trauma to the brain. PAST MEDICAL HISTORY: As above. SOCIAL HISTORY: Denies any smoking and drugs. Drinks alcohol daily, binge drink episodes. Last binge drink was one episode prior to the seizure yesterday. FAMILY HISTORY: Noncontributory. ALLERGIES: NO KNOWN DRUG ALLERGIES. MEDICATIONS: Reviewed by nurse reconciliation sheet. REVIEW OF SYSTEMS: A 14-point review of systems negative except in the HPI. LABORATORY DATA: Sodium is 134, potassium 2.9, chloride 96, carbon dioxide 25, BUN of 7, creatinine 0.8, random glucose 90. PHYSICAL EXAMINATION: VITAL SIGNS: Temperature 98, pulse rate 95, blood pressure 125/80, respiratory rate 20, oxygen saturation 99% by room air. GENERAL: The patient is sitting up in the bed, in no acute distress. HEENT: Atraumatic and normocephalic. PERRLA. Extraocular muscles are intact. Tongue: There is increased swelling on the right side with hematoma. NECK: Supple. No JVD. No adenopathy noted. LUNGS: Clear to auscultation. No adventitious sounds. ABDOMEN: Soft, nontender and nondistended. Bowel sounds present. EXTREMITIES: No clubbing, no cyanosis. Peripheral pulses 2+ bilaterally. HEART: S1 and S2. Normal rate and rhythm. No murmur, rubs, or gallops. NEUROLOGIC: The patient is alert and oriented to person, place, month, and year. Speech is fluent without any errors. Cranial nerves II through XII are intact. Motor exam: Moves all extremities equally. No pronator drift seen. Sensory exam: Light touch, pinprick, proprioception, and vibration are intact. DTRs are 2+ throughout. Coordination: [id number] intact. Gait is deferred for now. ASSESSMENT AND PLAN: This is a 37-year-old man with past medical history of hypertension, bipolar disorder, chronic drinker, and has binge drinking episodes, came with a new-onset seizure, likely related to alcohol withdrawal and provoked by alcohol rather than focal seizure itself. CAT scan of the head showed no acute intracranial abnormality. RECOMMENDATIONS: At this time, I recommend: 1. No for now. 2. Monitor electrolytes and correct accordingly. 3. Thiamine 100 mg p.o. daily. 4. EEG. 5. Follow up with his primary care doctor. Thank you for this consult. Hugh Gore MD
[2017-09-21] MEDS: Phenytoin 100 mg/2 ml Inj IVP SCH ×3 (00:14→17:57)
[2017-09-21] MEDS: Mag&Al/Simet/Diphen/Lido 237 ML KIT PO SCH ×4 (03:08→21:54)
[2017-09-21 07:19] LABS: HEMOGLOBIN 13.2 g/dL (12.0-18.0); MEAN CELL VOLUME 91.1 fl (80.0-94.0); MEAN CORPUSCULAR HEMOGLOBIN 31.6 pg (27.0-31.0); MEAN CORPUSCULAR HGB CONC 34.7 g/dL (33.0-37.0); RBC 4.18 Mil/uL (4.40-5.90); WHITE BLOOD COUNT 6.1 K/uL (4.8-10.8)
[2017-09-21 07:23] LABS: URINE AMORPHOUS SEDIMENT RARE /ul (<OCC); URINE BACTERIA RARE (<OCC); URINE BILIRUBIN NEGATIVE (NEGATIVE); URINE BLOOD SMALL (NEGATIVE); URINE CLARITY CLEAR (Clear); URINE COLOR YELLOW (YELLOW); URINE GLUCOSE (UA) NEG (Normal); URINE LEUKOCYTE ESTERASE NEG Leu/uL (Negative); URINE PROTEIN NEGATIVE (NEGATIVE); URINE UROBILINOGEN 0.2-1.0 mg/dL (0.2-1.0)
[2017-09-21 07:44] LABS: ALB/GLOB RATIO 1.2 (1.0-2.1); ALBUMIN 3.9 g/dL (3.5-5.0); ALT/SGPT 44 U/L (21-72); AST/SGOT 68 U/L (17-59); BLOOD UREA NITROGEN 8 mg/dl (9-20); CALCIUM 8.9 mg/dL (8.4-10.2); GFR AFRICAN-AMERICAN > 60; GFR NON-AFRICAN AMERICAN > 60
[2017-09-21] MEDS: Potassium Chloride 20 mEq ER Tab PO SCH ×2 (09:10→17:56)
[2017-09-21] MEDS: Omega-3-Acid Ethyl Esters 1 GM Cap PO SCH ×2 (09:10→21:53)
[2017-09-21] MEDS: Clindamycin 600mg/50ml D5W 600 MG/50 ML VIAL IVPB SCH ×2 (09:33→17:55)
--- NOTE | 2017-09-21 13:03 | PN ---
DATE: 09/21/2017 SUBJECTIVE: The patient seen and examined. Interim events noted. Consults noted and appreciated. The patient remains in progressive care unit on telemetry monitoring. The patient is sleeping, arousable, but does not want to get into conversation at this time. Denies any specific complaint. No seizures. No specific issue reported by nursing. PHYSICAL EXAMINATION: GENERAL: The patient is in no acute distress. VITAL SIGNS: Stable. HEART: S1 and S2, normal and regular. LUNGS: Good bilateral air exchange. ABDOMEN: Soft, nontender. EXTREMITIES: No edema. No calf swelling. No tenderness. No acute ischemia. 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 data reviewed. Telemetry monitoring does not show significant arrhythmias. ASSESSMENT AND PLAN: Overall, the patient's general medical condition is stable. Plan as ordered. Tigre Martinez MD
[2017-09-21] MEDS: Sodium Chloride 0.9% 1,000 ML IV SCH ×2 (14:00→22:00)
[2017-09-22] MEDS: Phenytoin 100 mg/2 ml Inj IVP SCH ×3 (01:07→17:25)
[2017-09-22] MEDS: Clindamycin 600mg/50ml D5W 600 MG/50 ML VIAL IVPB SCH ×3 (01:07→16:55)
[2017-09-22] MEDS: Mag&Al/Simet/Diphen/Lido 237 ML KIT PO SCH ×4 (04:37→21:44)
[2017-09-22 09:09] LABS: HEMOGLOBIN 13.5 g/dL (12.0-18.0); MEAN CORPUSCULAR HEMOGLOBIN 31.5 pg (27.0-31.0); MEAN CORPUSCULAR HGB CONC 33.9 g/dL (33.0-37.0); RBC 4.28 Mil/uL (4.40-5.90); RED CELL DISTRIBUTION WIDTH 15.7 % (11.5-14.5); WHITE BLOOD COUNT 6.1 K/uL (4.8-10.8)
[2017-09-22] MEDS: Omega-3-Acid Ethyl Esters 1 GM Cap PO SCH ×2 (09:10→21:44)
[2017-09-22] MEDS: Potassium Chloride 20 mEq ER Tab PO SCH ×2 (09:12→16:56)
[2017-09-22] MEDS: Sodium Chloride 0.9% 1,000 ML IV SCH (09:17)
[2017-09-22 09:21] LABS: ALB/GLOB RATIO 1.1 (1.0-2.1); ALBUMIN 4.2 g/dL (3.5-5.0); ALT/SGPT 44 U/L (21-72); AST/SGOT 65 U/L (17-59); BLOOD UREA NITROGEN 8 mg/dl (9-20); CALCIUM 9.2 mg/dL (8.4-10.2); GFR AFRICAN-AMERICAN > 60; GFR NON-AFRICAN AMERICAN > 60
--- NOTE | 2017-09-22 13:04 | PN ---
DATE: 09/22/2017 SUBJECTIVE: The patient is seen and examined. Interim events noted. Consults noted and appreciated. Neurology followup and intervention noted and appreciated. The patient remains in progressive care unit. The patient is sleeping, arousable, does not follow does not want to get into conversation at this time. Denied any specific complaints. No seizures. No specific issue reported by nursing staff. PHYSICAL EXAMINATION: GENERAL: The patient is no acute distress. VITAL SIGNS: Stable. HEART: S1 and S2. Normal and regular. LUNGS: Good bilateral air exchange. ABDOMEN: Soft and nontender. EXTREMITIES: No edema. No calf swelling. No tenderness. No acute ischemia. 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 DIAGNOSTIC DATA: Available diagnostic data reviewed . ASSESSMENT AND PLAN: Overall, the patient's general medical condition is stable. Plan as ordered. Tigre Martinez MD
--- NOTE | 2017-09-22 18:25 | MRI ---
PROCEDURE: MRI BRAIN WITH AND WITHOUT CONTRAST HISTORY: Seizure COMPARISON: None. TECHNIQUE: Multiplanar, multisequence MR images of the brain were obtained with and without intravenous contrast enhancement. FINDINGS: HEMORRHAGE: None DWI: No evidence of an acute or early subacute infarction. BRAIN PARENCHYMA: Although there is no delete focal signal abnormality in the reid or white matter structures above or below the tentorium, the ventricular sulcal and cisternal spaces are mildly expanding may indicate an element of atrophy. Consider possible HIV infection or chronic seizures. ENHANCEMENT: No abnormal intracranial enhancement. VENTRICLES: Unremarkable. No hydrocephalus. CRANIUM: Unremarkable. ORBITS: Grossly unremarkable. PARANASAL SINUSES/MASTOIDS: Clear VASCULAR SYSTEM: Skull base flow voids intact. OTHER FINDINGS: None . IMPRESSION: Limited diffuse cerebral atrophy may indicate chronic viral infection including HIV with chronic seizures also possibility. Remainder of the examination appears unremarkable.
[2017-09-23] MEDS: Phenytoin 100 mg/2 ml Inj IVP SCH ×3 (00:46→17:35)
[2017-09-23] MEDS: Clindamycin 600mg/50ml D5W 600 MG/50 ML VIAL IVPB SCH (00:51)
[2017-09-23] MEDS: Mag&Al/Simet/Diphen/Lido 237 ML KIT PO SCH ×4 (05:33→21:14)
[2017-09-23] MEDS: Omega-3-Acid Ethyl Esters 1 GM Cap PO SCH ×2 (09:22→20:16)
[2017-09-23] MEDS: Potassium Chloride 20 mEq ER Tab PO SCH ×2 (09:23→17:34)
--- NOTE | 2017-09-23 13:13 | PN ---
DATE: 09/23/2017 SUBJECTIVE: The patient seen and examined. Interim events noted. Consults noted and appreciated. MRI report reviewed. The patient feels okay. Denies any specific complaint. No chest pain. No shortness of breath. No dizziness. No seizures. PHYSICAL EXAMINATION: GENERAL: The patient is in no acute distress. VITAL SIGNS: Stable. HEART: S1 and S2, normal and regular. LUNGS: Good bilateral air exchange. ABDOMEN: Soft, nontender. EXTREMITIES: No edema. No calf swelling. No tenderness. No acute ischemia. 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 DIAGNOSTIC DATA: Available diagnostic data reviewed. Telemetry monitoring does not show significant arrhythmia. ASSESSMENT AND PLAN: Overall, the patient's general medical condition is stable. Plan as ordered. Tigre Martinez MD
[2017-09-23] MEDS: Sodium Chloride 0.9% 1,000 ML IV SCH (15:30)
[2017-09-23] MEDS ORDERED: Phenytoin 100 mg/2 ml Inj IVP SCH (17:00)
[2017-09-24] MEDS: Phenytoin 100 mg/2 ml Inj IVP SCH ×3 (00:57→17:42)
[2017-09-24] MEDS: Sodium Chloride 0.9% 1,000 ML IV SCH ×2 (01:06→06:50)
[2017-09-24] MEDS: Mag&Al/Simet/Diphen/Lido 237 ML KIT PO SCH ×3 (04:18→17:46)
[2017-09-24] MEDS: Omega-3-Acid Ethyl Esters 1 GM Cap PO SCH (09:55)
[2017-09-24] MEDS: Potassium Chloride 20 mEq ER Tab PO SCH ×2 (09:56→17:42)
--- NOTE | 2017-09-24 12:45 | CP.PCM.PCO ---
Assessment/Plan - Assessment and Plan (Free Text) Assessment: Patient seen and examined Vital signs reviewed and wnl. Patient with no tremors noted. Pain to right side of tongue decreasing, less swollen. EEG normal as per Dr Hutton Discussed plan with dr Gore, patient to dc home with no antiepileptics needed for alcohol withdrawal seizure. Plan for dc with follow up with Dr. Martinez in 1 week. rx for thiamine, folic acid and viscous lidocaine given to patient. SW met with patient, alcohol rehab resources provided.
[2017-09-24] MEDS ORDERED: Clindamycin 600mg/50ml NS 600 MG/50 ML BAG IVPB ONE (12:50)
[2017-09-24 13:35] VITALS: O2SAT 100
--- NOTE | 2017-09-24 13:51 | PN ---
DATE: 09/24/2017 SUBJECTIVE: The patient seen and examined. Interim events noted. The patient remains in progressive care unit, on telemetry monitoring. The patient is sleeping, arousable, feels okay. Denies any chest pain or shortness of breath. PHYSICAL EXAMINATION: GENERAL: The patient is in no acute distress. VITAL SIGNS: Stable. HEART: S1 and S2, normal and regular. LUNGS: Good bilateral air exchange. ABDOMEN: Soft, nontender. EXTREMITIES: No edema. No calf swelling. No tenderness. No acute ischemia. 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 DIAGNOSTIC DATA: Available diagnostic data reviewed. Overall, the patient's general medical condition is stable. The patient has tongue bite which looks a little infected. PLAN: As ordered. Tigre Martinez MD
[2017-09-24 16:31] VITALS: BP 108/71; RESP 16; TEMP 98.3
[2017-09-24 17:15] VITALS: PULSE 80
[2017-09-25 02:03] LABS: PHENYTOIN,FREE <0.5 mg/L (1.0-2.0)
== END 2017-09-24 18:47 | disposition home or self-care (01) | DRG 897 ==
LOC: H.ER 15:30 → H.ERHOLD 17:46 → H.TEL 21:07
PROVIDERS: ADMIT Internal Medicine; ATTEND Internal Medicine
DX: F10.239 Alcohol dependence with withdrawal, unspecified (principal); Y90.0 Blood alcohol level of less than 20 mg/100 ml; E87.6 Hypokalemia; F31.9 Bipolar disorder, unspecified; I10 Essential (primary) hypertension; R56.9 Unspecified convulsions; E78.00 Pure hypercholesterolemia, unspecified; E78.5 Hyperlipidemia, unspecified; K14.0 Glossitis

== ENCOUNTER 2017-10-24 23:16 | Emergency (ER) | payer MEDICARE, MEDICAID ==
--- NOTE | 2017-10-25 01:33 | ED PDOC ---
HPI: Psych/Substance Abuse Chief Complaint (Provider): Psychiatric Evaluation ED Caveat: Intoxicated History Per: Patient, EMS, Family (mother) History/Exam Limitations: intoxication Onset/Duration Of Symptoms: Mins (prior to arrival) Current Symptoms Are (Timing): Still Present Additional Complaint(s): 37 year old male presents to the ED via EMS for a psychiatric evaluation. Prior to arrival, his mother called 911 due to his intoxicated, and aggressive behavior at home. The mother told EMS upon arrival that patient is noncompliant with his psych medications, and the patient did admit to drinking alcohol. As per EMS, patient also possibly abused drugs as well. Patient has no physical complaints or reports of trauma at this time, but patient is not a good historian due to his intoxicated state. PMD: Dr. Jean <Gianna Hairston - Last Filed: 10/25/17 05:52> <Jesus Dominguez - Last Filed: 10/25/17 06:52> Time Seen by Provider: 10/24/17 23:27 Chief Complaint (Nursing): Psychiatric Evaluation Past Medical History Reviewed: Historical Data, Nursing Documentation, Vital Signs Vital Signs: Last Vital Signs Temp 98.2 F 10/24/17 23:22 Pulse 70 10/24/17 23:22 Resp 17 10/24/17 23:22 BP 140/89 10/24/17 23:22 Pulse Ox 95 10/24/17 23:22 - Medical History PMH: Anxiety, Bipolar Disorder, HTN, Hypercholesterolemia - Surgical History Other surgeries: cardiac sx as a child - Family History Family History: States: Unknown Family Hx - Social History Current smoker - smoking cessation education provided: Yes Alcohol: Social Drugs: Denies <Gianna Hairston - Last Filed: 10/25/17 05:52> Vital Signs: Last Vital Signs Temp 98.2 F 10/24/17 23:22 Pulse 64 10/25/17 03:23 Resp 16 10/25/17 03:23 BP 107/55 L 10/25/17 03:23 Pulse Ox 95 10/25/17 05:53 <Jesus Dominguez - Last Filed: 10/25/17 06:52> - Home Medications Home Medications: Ambulatory Orders Medication Instructions Recorded Clonazepam 0.5 mg PO HS 09/19/17 Icosapent Ethyl [Vascepa] 2 gm PO Q12 09/19/17 Losartan/Hydrochlorothiazide 1 tab PO DAILY 09/19/17 [Hyzaar 100-12.5 Tablet] Risperidone [Risperdal] 2 mg PO DAILY 09/19/17 amLODIPine [Norvasc] 10 mg PO DAILY 09/19/17 Folic Acid 1 mg PO DAILY #30 tab 09/24/17 Lidocaine 2% Viscous 20 ml MM Q8 #1 bottle 09/24/17 Thiamine [Vitamin B1 Tab] 100 mg PO DAILY #30 tab 09/24/17 - Allergies Allergies/Adverse Reactions: Allergies Allergy/AdvReac Type Severity Reaction Status Date / Time No Known Allergies Allergy Verified 09/19/17 15:33 Review of Systems Review Of Systems: ROS cannot be obtained secondary to pt's inabilty to answer questions. Psych: Positive for: Other (intoxication, possible drug abuse) <Gianna Hairston - Last Filed: 10/25/17 05:52> Physical Exam - Reviewed Nursing Documentation Reviewed: Yes Vital Signs Reviewed: Yes - Physical Exam Comments: GENERAL APPEARANCE: Patient is awake, intoxicated, agitated, and uncooperative. Patient has slurred speech. SKIN: Warm, dry; (-) cyanosis HEAD: (-) scalp swelling, (-) scalp tenderness. EYES: (+) bilateral conjunctival injection, (-) scleral icterus, (-) nystagmus. ENMT: Mucous membranes moist. Airway patent: (-) stridor. NECK: (-) tenderness, (-) stiffness, (-) lymphadenopathy. HEART AND CARDIOVASCULAR: (-) irregularity; (-) murmur, (-) gallop. CHEST AND RESPIRATORY: (-) rales, (-) rhonchi, (-) wheezes; breath sounds equal. ABDOMEN: Soft, (-) distention, (-) tenderness, (-) guarding. NEURO AND PSYCH: Mental status as above. special inspector: Intact. Pupils equal and reactive; EOMI; (-) facial asymmetry; tongue and uvula midline. Strength and DTRs symmetric. <Gianna Hairston - Last Filed: 10/25/17 05:52> - ECG O2 Sat by Pulse Oximetry: 95 (RA) Pulse Ox Interpretation: Normal <Gianna Hairston - Last Filed: 10/25/17 05:52> Medical Decision Making Medical Decision Making: Time: 23:35 Initial Impression: psychiatric evaluation, alcohol intoxication, possible substance abuse Initial Plan: -- Due to pt being uncooperative, physically threatening to the ED staff, and refusing to stay in ED room, security was called multiple times to bedside. At this time, 4 point restraints were ordered. --Alcohol serum --Urine drug screen --Crisis evaluation --Ativan 2 mg IM --1:1 Observation --Blood glucose level 0130 Accucheck: 104 Utox: Negative Serum Alcohol: 281 0137 Patient sleeping comfortably in ED stretcher. 4 point restraints removed. 0320 Patient resting in stretcher comfortably. No acute distress noted. Pending clinical sobriety and crisis evaluation. 0600 Patient awake, alert, but uncooperative with answering questions. Continuation of care per Dr Dominguez. Scribe Attestation: Documented by Reyna Gallagher, acting as a scribe for Gianna Hairston PA-C. Provider Scribe Attestation: All medical record entries made by the Scribe were at my direction and personally dictated by me. I have reviewed the chart and agree that the record accurately reflects my personal performance of the history, physical exam, medical decision making, and the department course for this patient. I have also personally directed, reviewed, and agree with the discharge instructions and disposition. <Gianna Hairston - Last Filed: 10/25/17 05:52> Medical Decision Makin WIll endorse case to Dr. Conway pending crisis eval. Patient resting comfortably. <Jesus Dominguez - Last Filed: 10/25/17 06:52> Disposition <Gianna Hairston - Last Filed: 10/25/17 05:52> - Patient ED Disposition Is Patient to be Admitted: Transfer of Care - Disposition Disposition: Transfer of Care Disposition Time: 07:00 Patient Signed Over To: Mariya Conway Handoff Comments: pending crisis eval <Jesus Dominguez - Last Filed: 10/25/17 06:52> - Clinical Impression Clinical Impression: Alcohol abuse - Disposition Referrals: Elroy Robles PA [Primary Care Provider] - Condition: STABLE Forms: [facility] (Nigerien) Results - Lab Results Lab Results: 10/25/17 10/25/17 10/25/17 01:00 01:00 00:55 POC Glucose (mg/dL) 104 Urine Opiates Screen Negative Urine Methadone Screen Negative Ur Barbiturates Screen Negative Ur Phencyclidine Scrn Negative Ur Amphetamines Screen Negative U Benzodiazepines Scrn Negative U Oth Cocaine Metabols Negative U Cannabinoids Screen Negative Alcohol, Quantitative 281 H <Gianna Hairston - Last Filed: 10/25/17 05:52> - Lab Results Lab Results: 10/25/17 10/25/17 10/25/17 01:00 01:00 00:55 POC Glucose (mg/dL) 104 Urine Opiates Screen Negative Urine Methadone Screen Negative Ur Barbiturates Screen Negative Ur Phencyclidine Scrn Negative Ur Amphetamines Screen Negative U Benzodiazepines Scrn Negative U Oth Cocaine Metabols Negative U Cannabinoids Screen Negative Alcohol, Quantitative 281 H <Jesus Dominguez - Last Filed: 10/25/17 06:52>
[2017-10-25 01:38] LABS: BARBITURATES, UR NEGATIVE (NEGATIVE); BENZODIAZEPINES, UR NEGATIVE (NEGATIVE); OPIATES, UR NEGATIVE (NEGATIVE); PHENCYCLIDINE, UR NEGATIVE (NEGATIVE)
--- NOTE | 2017-10-25 07:21 | ED PDOC ---
- ECG O2 Sat by Pulse Oximetry: 95 (RA) Medical Decision Making Medical Decision Making: patient endorsed to me by Dr. Dominguez. Patient is pending crisis evaluation. 10.00 a- patient seen by crisis and cleared for discharge. Patient awake, alert and cooperative Disposition Doctor Will See Patient In The: Office Counseled Patient/Family Regarding: Diagnosis, Need For Followup - Clinical Impression Clinical Impression: Alcohol abuse - POA Present On Arrival: None - Disposition Referrals: Elroy Robles PA [Primary Care Provider] - Disposition: Routine/Home Disposition Time: 10:10 Condition: STABLE Instructions: Alcohol Abuse and Alcoholism (DC) Forms: [facility] (Mauritanian)
[2017-10-25 10:49] VITALS: BP 114/67; PULSE 89; RESP 14; TEMP 98.4; O2SAT 99
== END 2017-10-25 10:57 | disposition home or self-care (01) ==
LOC: H.ER 23:16
DX: F10.129 Alcohol abuse with intoxication, unspecified (principal); E78.00 Pure hypercholesterolemia, unspecified; I10 Essential (primary) hypertension; Z91.19 Patient's noncompliance with other medical treatment and regimen
CPT/HCPCS: 82948; 96372; 99285; G0480; J2060

== ENCOUNTER 2017-11-13 15:41 | Emergency (ER) | payer MEDICARE, MEDICAID ==
--- NOTE | 2017-11-13 16:06 | ED PDOC ---
HPI: Psych/Substance Abuse Time Seen by Provider: 11/13/17 15:50 Chief Complaint (Nursing): Seizure Chief Complaint (Provider): Seizure ED Caveat: Intoxicated History Per: Family (Mother) History/Exam Limitations: no limitations Onset/Duration Of Symptoms: Mins Current Symptoms Are (Timing): Still Present Modifying Factor(s): Alcohol Additional History Per: Patient Additional Complaint(s): 37 y/o male with a PMHx of Seizure disorder, Anxiety, Bipolar Disorder, HTN, and Hypercholesterolemia brought in by [facility] for possible seizure. Mother contacted EMS stating the patient had a seizure. mother not present in the ER. Patient admits to excessive drinking. Patient appears agitated and violent in the ED upon arrival, and placed on 1:1. PMD: No Provider Past Medical History Reviewed: Historical Data, Nursing Documentation, Vital Signs Vital Signs: Last Vital Signs Temp 97.6 F 11/13/17 15:47 Pulse 106 H 11/13/17 15:47 Resp 16 11/13/17 15:47 BP 155/99 H 11/13/17 15:47 Pulse Ox 99 11/13/17 15:47 - Medical History PMH: Anxiety, Bipolar Disorder, HTN, Hypercholesterolemia Denies: Diabetes, Hepatitis, HIV, Seizures, Sexually Transmitted Disease - Surgical History Surgical History: No Surg Hx - Family History Family History: States: Unknown Family Hx - Social History Current smoker - smoking cessation education provided: No Alcohol: None Drugs: Denies - Immunization History Hx Tetanus Toxoid Vaccination: No Hx Influenza Vaccination: No Hx Pneumococcal Vaccination: No - Home Medications Home Medications: Ambulatory Orders Medication Instructions Recorded Clonazepam 0.5 mg PO HS 09/19/17 Icosapent Ethyl [Vascepa] 2 gm PO Q12 09/19/17 Losartan/Hydrochlorothiazide 1 tab PO DAILY 09/19/17 [Hyzaar 100-12.5 Tablet] Risperidone [Risperdal] 2 mg PO DAILY 09/19/17 amLODIPine [Norvasc] 10 mg PO DAILY 09/19/17 Folic Acid 1 mg PO DAILY #30 tab 09/24/17 Lidocaine 2% Viscous 20 ml MM Q8 #1 bottle 09/24/17 Thiamine [Vitamin B1 Tab] 100 mg PO DAILY #30 tab 09/24/17 - Allergies Allergies/Adverse Reactions: Allergies Allergy/AdvReac Type Severity Reaction Status Date / Time No Known Allergies Allergy Verified 09/19/17 15:33 Review of Systems ROS Statement: Except As Marked, All Systems Reviewed And Found Negative Neurological: Positive for: Seizures Psych: Positive for: Other (EtOH intoxication) Physical Exam - Reviewed Nursing Documentation Reviewed: Yes Vital Signs Reviewed: Yes - Physical Exam Appears: Positive for: No Acute Distress (Agitated) Head Exam: Positive for: ATRAUMATIC Skin: Positive for: Normal Color, Warm, Dry Eye Exam: Positive for: Normal appearance ENT: Positive for: Normal ENT Inspection Neck: Positive for: Normal, Painless ROM Cardiovascular/Chest: Positive for: Regular Rate, Rhythm. Negative for: Murmur , Bradycardia, Tachycardia Respiratory: Positive for: Normal Breath Sounds. Negative for: Respiratory Distress Gastrointestinal/Abdominal: Positive for: Normal Exam, Soft. Negative for: Tenderness Extremity: Positive for: Normal ROM. Negative for: Deformity Neurologic/Psych: Positive for: Alert, Other (agitated and combative). Negative for: Motor/Sensory Deficits - Laboratory Results Result Diagrams: 11/13/17 16:35 11/13/17 16:35 - ECG O2 Sat by Pulse Oximetry: 99 (RA) Pulse Ox Interpretation: Normal Medical Decision Making Medical Decision Making: Time: 1600 Plan: AGITATION.POSSIBLE SEIZURE -- Acetaminophen -- Alcohol Serum -- CMP -- Urine Drug Screen -- Salicylate -- CBC with differentials -- Ativan 2 mg IVP -- Haldol 5 mg IM -- Restraint: Violent or harm to self/other as ordered -- Urinalysis -- Restraints applied due to patient's aggressive and violent behavior to ensure the safety of staff and self. -- Patient given medications to relieve agitation Time: 1899 -- Patient endorsed to Dr. Dominguez, pending sobriety and crisis evaluation. Scribe Attestation: Documented by Iwona Vuong acting as a scribe for Dr. Jamie Tomas MD. Provider Scribe Attestation: All medical record entries made by the Scribe were at my direction and personally dictated by me. I have reviewed the chart and agree that the record accurately reflects my personal performance of the history, physical exam, medical decision making, and the department course for this patient. I have also personally directed, reviewed, and agree with the discharge instructions and disposition. Disposition - Clinical Impression Clinical Impression: Alcohol abuse - Patient ED Disposition Is Patient to be Admitted: Transfer of Care - Disposition Referrals: Alcoholics Anonymous [Outside] Disposition: Transfer of Care Disposition Time: 19:00 Condition: GOOD Instructions: Alcohol Abuse and Alcoholism (DC) Forms: [facility] (Hungarian) Patient Signed Over To: Jesus Dominguez
[2017-11-13 16:45] LABS: BASO % 1.4 % (0.0-2.0); EOS % 0.5 % (0.0-4.0); HEMOGLOBIN 13.7 g/dL (12.0-18.0); LYMPH # 1.3 K/uL (1.0-4.3); LYMPH % 53.2 % (20.0-40.0); MEAN CELL VOLUME 87.3 fl (80.0-94.0); MEAN CORPUSCULAR HEMOGLOBIN 30.2 pg (27.0-31.0); MEAN CORPUSCULAR HGB CONC 34.6 g/dL (33.0-37.0); MEAN PLATELET VOLUME 6.7 fl (7.2-11.7); MONO # 0.2 K/uL (0.0-0.8); MONO % 6.6 % (0.0-10.0); NEUT % 38.3 % (50.0-75.0); NRBC % 0.1 % (0.0-0.0); RBC 4.53 Mil/uL (4.40-5.90); WHITE BLOOD COUNT 2.5 K/uL (4.8-10.8)
[2017-11-13 17:09] LABS: ALB/GLOB RATIO 1.3 (1.0-2.1); ALBUMIN 4.7 g/dL (3.5-5.0); ALT/SGPT 41 U/L (21-72); AST/SGOT 53 U/L (17-59); BLOOD UREA NITROGEN 12 mg/dl (9-20); CALCIUM 8.4 mg/dL (8.4-10.2); GFR AFRICAN-AMERICAN > 60; GFR NON-AFRICAN AMERICAN > 60
[2017-11-13 17:45] LABS: ACETAMINOPHEN < 10.0 ug/ml (10.0-30.0); SALICYLATE < 1.0 mg/dl
--- NOTE | 2017-11-13 18:45 | CT ---
Date of service: 11/13/2017 PROCEDURE: CT HEAD WITHOUT CONTRAST. HISTORY: Possible seizure. COMPARISON: Comparison made with CT scan brain 09/19/2017. . TECHNIQUE: Axial computed tomography images were obtained through the head/brain without intravenous contrast. Radiation dose: Total exam DLP = 1063.82 mGy-cm. This CT exam was performed using one or more of the following dose reduction techniques: Automated exposure control, adjustment of the mA and/or kV according to patient size, and/or use of iterative reconstruction technique. FINDINGS: HEMORRHAGE: No acute parenchymal, subarachnoid or extra-axial hemorrhage. BRAIN: No evidence of large acute infarct. No obvious parenchymal nor extra-axial masses or collections seen on this noncontrast study. Mild generalized volume loss. VENTRICLES: No obstructive hydrocephalus. CALVARIUM: Unremarkable. PARANASAL SINUSES: Unremarkable as visualized. No significant inflammatory changes. MASTOID AIR CELLS: Unremarkable as visualized. No inflammatory changes. OTHER FINDINGS: None. IMPRESSION: No acute intracranial hemorrhage. Mild generalized volume loss.
[2017-11-13 19:51] VITALS: O2SAT 99
--- NOTE | 2017-11-13 20:22 | ED PDOC ---
- Laboratory Results Result Diagrams: 11/13/17 16:35 11/13/17 16:35 - ECG O2 Sat by Pulse Oximetry: 99 (RA) Pulse Ox Interpretation: Normal Medical Decision Making Medical Decision Making: Time: 1899 --Patient endorsed to me by Dr. Tomas, pending sobriety and crisis evaluation. 2199 No acute changes 0100 Patient starting to wake up, asking for water 0330 Patient awake, sober, alert. Seen by crisis, does not meet admission criteria, will be discharged with outpatient resources, Dr. Pickett has cleared patient psychiatrically. Medically stable for discharge. Scribe Attestation: Documented by Iwona Vuong acting as a scribe for Dr. Jesus Dominguez MD. Provider Scribe Attestation: All medical record entries made by the Scribe were at my direction and personally dictated by me. I have reviewed the chart and agree that the record accurately reflects my personal performance of the history, physical exam, medical decision making, and the department course for this patient. I have also personally directed, reviewed, and agree with the discharge instructions and disposition. Disposition - Clinical Impression Clinical Impression: Alcohol abuse - POA Present On Arrival: None - Disposition Referrals: Alcoholics Anonymous [Outside] Disposition: Routine/Home Disposition Time: 04:12 Condition: GOOD Instructions: Alcohol Abuse and Alcoholism (DC) Forms: [facility] (Zambian)
[2017-11-14 07:00] VITALS: BP 128/78; PULSE 95; RESP 18; TEMP 98.2
== END 2017-11-14 06:58 | disposition home or self-care (01) ==
LOC: H.ER 15:41
DX: F10.10 Alcohol abuse, uncomplicated (principal); Y90.8 Blood alcohol level of 240 mg/100 ml or more; I10 Essential (primary) hypertension; E78.00 Pure hypercholesterolemia, unspecified
CPT/HCPCS: 70450; 80053; 85025; 96372; 96374; 99285; G0480; J1630; J2060

== ENCOUNTER 2017-11-24 11:59 | Emergency (ER) | payer MEDICARE, MEDICAID ==
[2017-11-24 12:03] VITALS: RESP 18
[2017-11-24 13:01] LABS: BASO % 0.5 % (0.0-2.0); EOS % 0.8 % (0.0-4.0); HEMOGLOBIN 14.2 g/dL (12.0-18.0); LYMPH # 0.7 K/uL (1.0-4.3); LYMPH % 15.8 % (20.0-40.0); MEAN CELL VOLUME 88.1 fl (80.0-94.0); MEAN CORPUSCULAR HEMOGLOBIN 30.9 pg (27.0-31.0); MEAN CORPUSCULAR HGB CONC 35.1 g/dL (33.0-37.0); MEAN PLATELET VOLUME 7.5 fl (7.2-11.7); MONO # 0.6 K/uL (0.0-0.8); MONO % 13.9 % (0.0-10.0); NEUT # 3.2 K/uL (1.8-7.0); RBC 4.59 Mil/uL (4.40-5.90); RED CELL DISTRIBUTION WIDTH 14.7 % (11.5-14.5); WHITE BLOOD COUNT 4.6 K/uL (4.8-10.8)
[2017-11-24 13:19] LABS: ALB/GLOB RATIO 1.4 (1.0-2.1); ALBUMIN 4.9 g/dL (3.5-5.0); ALT/SGPT 32 U/L (21-72); AST/SGOT 54 U/L (17-59); BLOOD UREA NITROGEN 24 mg/dl (9-20); CALCIUM 9.6 mg/dL (8.4-10.2); GFR AFRICAN-AMERICAN 59; GFR NON-AFRICAN AMERICAN 49
--- NOTE | 2017-11-24 13:26 | ED PDOC ---
HPI: Chest Pain Time Seen by Provider: 11/24/17 12:11 Chief Complaint (Nursing): Palpitations Chief Complaint (Provider): Palpitations History Per: Patient History/Exam Limitations: no limitations Additional Complaint(s): Patient is a 37 y/o male who presents to the ED complaining of palpitations with associated tingling of hands and feet. Patient denies any past medical history however EMR review reveals history of chest pain, psych, and alcohol abuse. Patient states that he had several beers x4 days ago, Saturday, but has not drank any alcohol or used any drugs since then. Patient states he came to the ED with the same symptoms in the past and was "given a little pill" that made him feel better but cannot recall what the medication was. Patient denies nausea, vomiting, or abdominal pain. Past Medical History Reviewed: Historical Data, Nursing Documentation, Vital Signs Vital Signs: Last Vital Signs Temp 98.7 F 11/24/17 14:11 Pulse 80 11/24/17 14:11 Resp 18 11/24/17 14:11 BP 128/68 11/24/17 14:44 Pulse Ox 99 11/24/17 14:59 - Medical History PMH: Anxiety, Bipolar Disorder, HTN, Hypercholesterolemia Denies: Diabetes, Hepatitis, HIV, Seizures, Sexually Transmitted Disease - Family History Family History: States: Unknown Family Hx - Immunization History Hx Tetanus Toxoid Vaccination: No Hx Influenza Vaccination: No Hx Pneumococcal Vaccination: No - Home Medications Home Medications: Ambulatory Orders Medication Instructions Recorded Clonazepam 0.5 mg PO HS 09/19/17 Icosapent Ethyl [Vascepa] 2 gm PO Q12 09/19/17 Losartan/Hydrochlorothiazide 1 tab PO DAILY 09/19/17 [Hyzaar 100-12.5 Tablet] Risperidone [Risperdal] 2 mg PO DAILY 09/19/17 amLODIPine [Norvasc] 10 mg PO DAILY 09/19/17 Folic Acid 1 mg PO DAILY #30 tab 09/24/17 Lidocaine 2% Viscous 20 ml MM Q8 #1 bottle 09/24/17 Thiamine [Vitamin B1 Tab] 100 mg PO DAILY #30 tab 09/24/17 - Allergies Allergies/Adverse Reactions: Allergies Allergy/AdvReac Type Severity Reaction Status Date / Time No Known Allergies Allergy Verified 09/19/17 15:33 Review of Systems ROS Statement: Except As Marked, All Systems Reviewed And Found Negative Constitutional: Negative for: Fever Cardiovascular: Positive for: Palpitations Gastrointestinal: Negative for: Nausea, Vomiting, Abdominal Pain Neurological: Positive for: Other (tingling) Physical Exam - Reviewed Nursing Documentation Reviewed: Yes Vital Signs Reviewed: Yes - Physical Exam Appears: Positive for: Well, No Acute Distress Head Exam: Positive for: ATRAUMATIC, NORMOCEPHALIC Skin: Positive for: Normal Color, Warm, Dry Eye Exam: Positive for: EOMI, Normal appearance, PERRL Neck: Positive for: Normal, Painless ROM, Supple Cardiovascular/Chest: Positive for: Regular Rate, Rhythm. Negative for: Murmur Respiratory: Positive for: Normal Breath Sounds. Negative for: Respiratory Distress Gastrointestinal/Abdominal: Positive for: Normal Exam, Soft. Negative for: Tenderness Back: Positive for: Normal Inspection. Negative for: L CVA Tenderness, R CVA Tenderness, Vertebral Tenderness Extremity: Positive for: Normal ROM. Negative for: Pedal Edema, Deformity Neurologic/Psych: Positive for: Alert, Oriented. Negative for: Motor/Sensory Deficits, Other (tremors) - Laboratory Results Result Diagrams: 11/24/17 12:53 11/24/17 12:53 - ECG O2 Sat by Pulse Oximetry: 99 (RA) Pulse Ox Interpretation: Normal Medical Decision Making Medical Decision Making: Time: 12:34 Impression: Possible withdrawal symptoms causing palpitations and feelings of discomfort. Patient is tolerating PO and will continue to give PO fluids. Zofran will be given for nausea. Will consider IV fluids and Librium if patient shows further signs of alcohol withdrawal. Initial Plan: --Alcohol serum --CMP --Drug screen --CBC w/ drugs --CXR --Zofran 1400 : pt with improved palpitations and nausea but began to have slight tremor and tongue fasciculations. Pt given PO librium. 15:00: Pt with resolved tremor and states palpitations have resolved. Vitals normal. In depth with patient regarding drinking reveals pt has a tendency to binge drink for days straight and will stop abruptly with similar symptoms. Pt states a few weeks ago he had a seizure as a result of alcohol withdrawal but was not started on any medication and never went for follow up. PT has recently missed appointment's with his PMD and with his psychiatrist due to drinking. The risk of continued drinking was discussed with the patient and he states he feels more motivated to stop drinking now and will see his doctors this week. ----- Scribe Attestation: Documented by Cachorro Moyer, acting as a scribe for Gianna Summers MD. Provider Scribe Attestation: All medical record entries made by the Scribe were at my direction and personally dictated by me. I have reviewed the chart and agree that the record accurately reflects my personal performance of the history, physical exam, medical decision making, and the department course for this patient. I have also personally directed, reviewed, and agree with the discharge instructions and disposition. Disposition - Clinical Impression Clinical Impression: Palpitations, Alcohol abuse, Alcohol withdrawal - Disposition Referrals: [facility] [Other] [facility] [Outside] Disposition Time: 15:12 Condition: IMPROVED Additional Instructions: Follow up with primary medical doctor and psychiatrist this week. Increase fluid intake. Do not use drugs or alcohol. Return to the emergency department if symptoms worsen or new symptoms develop. Instructions: Palpitations, Alcohol Withdrawal, Alcohol Abuse and Alcoholism ( DC), Effects of Alcohol on Your Health Forms: [facility] (Samoan) Print Language: BENGALI
[2017-11-24 13:32] LABS: BARBITURATES, UR NEGATIVE (NEGATIVE); BENZODIAZEPINES, UR NEGATIVE (NEGATIVE); OPIATES, UR NEGATIVE (NEGATIVE); PHENCYCLIDINE, UR NEGATIVE (NEGATIVE)
[2017-11-24 14:05] VITALS: PULSE 80
[2017-11-24 14:12] VITALS: TEMP 98.7
[2017-11-24 14:20] VITALS: O2SAT 99
[2017-11-24 14:44] VITALS: BP 128/68
--- NOTE | 2017-11-24 15:28 | RAD ---
Date of service: 11/24/2017 HISTORY: possible admission COMPARISON: 09/19/2017 FINDINGS: LUNGS: No active pulmonary disease. PLEURA: No significant pleural effusion identified, no pneumothorax apparent. CARDIOVASCULAR: Normal. OSSEOUS STRUCTURES: No significant abnormalities. VISUALIZED UPPER ABDOMEN: Normal. OTHER FINDINGS: None. IMPRESSION: No active disease.
== END 2017-11-24 15:20 | disposition home or self-care (01) ==
LOC: H.ER 11:59
DX: R00.2 Palpitations (principal); F10.239 Alcohol dependence with withdrawal, unspecified; I10 Essential (primary) hypertension; Z86.59 Personal history of other mental and behavioral disorders; R56.9 Unspecified convulsions; E78.00 Pure hypercholesterolemia, unspecified
CPT/HCPCS: 71045; 80053; 85025; 96372; 99283; G0480; J2405

== ENCOUNTER 2018-02-10 18:51 | Emergency (ER) | payer MEDICARE, MEDICAID ==
--- NOTE | 2018-02-10 19:40 | ED PDOC ---
HPI: Psych/Substance Abuse Time Seen by Provider: 02/10/18 18:55 Chief Complaint (Nursing): Psychiatric Evaluation Chief Complaint (Provider): Psychiatric Evaluation History Per: Patient History/Exam Limitations: no limitations Onset/Duration Of Symptoms: Hrs Current Symptoms Are (Timing): Still Present Modifying Factor(s): Alcohol Associated Symptoms: Agitation Additional History Per: EMS Additional Complaint(s): 37 year old male with a history of psychiatric illness and substance abuse pre sents to the ER for psychiatric evaluation. As per EMS, mom called ambulance due to patients agitated behavior at home. Patient admits to drinking beer. Denies homicidal ideation or suicidal ideation. Past Medical History Reviewed: Historical Data, Nursing Documentation, Vital Signs Vital Signs: Last Vital Signs Temp 98.0 F 02/10/18 18:55 Pulse 95 H 02/10/18 18:55 Resp 16 02/10/18 18:55 BP 144/88 02/10/18 18:55 Pulse Ox 99 02/10/18 18:55 - Medical History PMH: Anxiety, Bipolar Disorder, HTN, Hypercholesterolemia Denies: Diabetes, Hepatitis, HIV, Seizures, Sexually Transmitted Disease - Family History Family History: States: Unknown Family Hx - Social History Alcohol: < 2 Drinks/Day - Immunization History Hx Tetanus Toxoid Vaccination: No Hx Influenza Vaccination: No Hx Pneumococcal Vaccination: No - Home Medications Home Medications: Ambulatory Orders Medication Instructions Recorded Clonazepam 0.5 mg PO HS 09/19/17 Icosapent Ethyl [Vascepa] 2 gm PO Q12 09/19/17 Losartan/Hydrochlorothiazide 1 tab PO DAILY 09/19/17 [Hyzaar 100-12.5 Tablet] Risperidone [Risperdal] 2 mg PO DAILY 09/19/17 amLODIPine [Norvasc] 10 mg PO DAILY 09/19/17 Folic Acid 1 mg PO DAILY #30 tab 09/24/17 Lidocaine 2% Viscous 20 ml MM Q8 #1 bottle 09/24/17 Thiamine [Vitamin B1 Tab] 100 mg PO DAILY #30 tab 09/24/17 - Allergies Allergies/Adverse Reactions: Allergies Allergy/AdvReac Type Severity Reaction Status Date / Time No Known Allergies Allergy Verified 02/10/18 18:55 Review of Systems ROS Statement: Except As Marked, All Systems Reviewed And Found Negative Constitutional: Negative for: Fever, Chills Psych: Positive for: Other (Agitated ). Negative for: Suicidal ideation (homcidal ideation ) Physical Exam - Reviewed Nursing Documentation Reviewed: Yes Vital Signs Reviewed: Yes - Physical Exam Appears: Positive for: Non-toxic, No Acute Distress Head Exam: Positive for: ATRAUMATIC, NORMAL INSPECTION, NORMOCEPHALIC Skin: Positive for: Normal Color, Warm, Dry. Negative for: Rash Eye Exam: Positive for: EOMI, Normal appearance, PERRL ENT: Positive for: Normal ENT Inspection Neck: Positive for: Normal, Painless ROM, Supple. Negative for: Decreased ROM Cardiovascular/Chest: Positive for: Regular Rate, Rhythm. Negative for: Murmur Respiratory: Positive for: Normal Breath Sounds. Negative for: Decreased Breath Sounds, Wheezing, Respiratory Distress Gastrointestinal/Abdominal: Positive for: Normal Exam, Soft. Negative for: Tenderness, Guarding, Rebound Back: Positive for: Normal Inspection Extremity: Positive for: Normal ROM. Negative for: Tenderness, Pedal Edema, De formity Neurologic/Psych: Positive for: Alert, Oriented (x3), Mood/Affect (patient mildly agitated but can be redirected). Negative for: Motor/Sensory Deficits - Laboratory Results Result Diagrams: 02/10/18 21:29 02/10/18 21:29 - ECG O2 Sat by Pulse Oximetry: 99 (RA) Pulse Ox Interpretation: Normal Medical Decision Making Medical Decision Making: Time: 1900 Initial Plan: Alcohol Serum BMP Drug screen CBC w/ Differential Urinalysis Reevaluation Patient will be placed on 1:1 observation Scribe Attestation: Documented by Juan Lamas, acting as a scribe for Yolanda Benavides PA-C Provider Scribe Attestation: All medical record entries made by the Scribe were at my direction and person ally dictated by me. I have reviewed the chart and agree that the record accurately reflects my personal performance of the history, physical exam, medical decision making, and the department course for this patient. I have also personally directed, reviewed, and agree with the discharge instructions and disposition. Disposition - Clinical Impression Clinical Impression: Alcohol intoxication - Patient ED Disposition Is Patient to be Admitted: Transfer of Care - Disposition Disposition: Transfer of Care Disposition Time: 00:01 Condition: FAIR Patient Signed Over To: Alejandra Tim Handoff Comments: PENDING CRISIS EVAL
[2018-02-10 21:38] LABS: URINE BILIRUBIN NEGATIVE (NEGATIVE); URINE BLOOD NEGATIVE (NEGATIVE); URINE CLARITY CLEAR (Clear); URINE COLOR COLORLESS (YELLOW); URINE GLUCOSE (UA) NEG (Normal); URINE LEUKOCYTE ESTERASE NEG Leu/uL (Negative); URINE PROTEIN NEGATIVE (NEGATIVE); URINE UROBILINOGEN 0.2-1.0 mg/dL (0.2-1.0)
[2018-02-10 21:40] LABS: BASO # 0.1 K/uL (0.0-0.2); BASO % 0.9 % (0.0-2.0); EOS % 0.6 % (0.0-4.0); HEMOGLOBIN 14.5 g/dL (12.0-18.0); LYMPH # 2.9 K/uL (1.0-4.3); LYMPH % 39.2 % (20.0-40.0); MEAN CELL VOLUME 89.6 fl (80.0-94.0); MEAN CORPUSCULAR HEMOGLOBIN 30.2 pg (27.0-31.0); MEAN CORPUSCULAR HGB CONC 33.7 g/dL (33.0-37.0); MEAN PLATELET VOLUME 7.4 fl (7.2-11.7); MONO % 13.2 % (0.0-10.0); NEUT # 3.5 K/uL (1.8-7.0); NEUT % 46.1 % (50.0-75.0); NRBC % 0.1 % (0.0-0.0); RBC 4.8 Mil/uL (4.40-5.90); RED CELL DISTRIBUTION WIDTH 14.7 % (11.5-14.5); WHITE BLOOD COUNT 7.5 K/uL (4.8-10.8)
[2018-02-10 22:19] LABS: BARBITURATES, UR NEGATIVE (NEGATIVE); BENZODIAZEPINES, UR NEGATIVE (NEGATIVE); OPIATES, UR NEGATIVE (NEGATIVE); PHENCYCLIDINE, UR NEGATIVE (NEGATIVE)
[2018-02-10 23:33] LABS: BLOOD UREA NITROGEN 13 mg/dl (9-20); CALCIUM 9.1 mg/dL (8.4-10.2); GFR NON-AFRICAN AMERICAN > 60
[2018-02-11 01:45] VITALS: O2SAT 98
--- NOTE | 2018-02-11 03:19 | ED PDOC ---
- Laboratory Results Result Diagrams: 02/10/18 21:29 02/10/18 21:29 - ECG O2 Sat by Pulse Oximetry: 98 - Progress ED Course And Treament: Case endorsed to com writer from [facility] NUNN pending sobriety and crisis eval 1:30 Patient sleeping; no distress 3:00 Patient awake, alert, oriented x3. Patient evaluated by conveyor worker; does not meet criteria for admission at this time as per Dr. Pickett Patient requires no further intervention in the ED and is stable for discharge at this time Return precautions given Disposition - Clinical Impression Clinical Impression: Alcohol use disorder, mild, abuse - POA Present On Arrival: None - Disposition Disposition: Routine/Home Disposition Time: 03:19 Condition: IMPROVED Instructions: Alcohol Use - When Is Drinking a Problem? Forms: [facility] (Frisian)
[2018-02-11 03:42] VITALS: RESP 18
[2018-02-11 03:43] VITALS: BP 117/68; PULSE 78; TEMP 98.4
== END 2018-02-11 03:45 | disposition home or self-care (01) ==
LOC: H.ER 18:51
DX: F10.129 Alcohol abuse with intoxication, unspecified (principal); Z86.59 Personal history of other mental and behavioral disorders; I10 Essential (primary) hypertension; Y90.8 Blood alcohol level of 240 mg/100 ml or more; Z00.8 Encounter for other general examination; Z79.899 Other long term (current) drug therapy
CPT/HCPCS: 80048; 81003; 85025; G0480

== ENCOUNTER 2018-04-10 20:00 | Emergency (ER) | payer MEDICARE, OTHER ==
[2018-04-10 20:06] VITALS: RESP 16; TEMP 98
--- NOTE | 2018-04-10 22:30 | ED PDOC ---
HPI: Psych/Substance Abuse Time Seen by Provider: 04/10/18 20:12 Chief Complaint (Nursing): Alcohol Ingestion Chief Complaint (Provider): Alcohol Ingestion History Per: Patient History/Exam Limitations: intoxication Onset/Duration Of Symptoms: Hrs Current Symptoms Are (Timing): Still Present Additional Complaint(s): Patient is a 37 y/o male ETOH abuser with hx of DTs as well as anxiety, HTN, hypercholesterolemia, depression, and bipolar disorder who was brought in by the ambulance for being intoxicated. Patient's mother called the ambulance because the patient was too drunk. Patient was uncooperative when trying to obtain history and was agitated during interview. The patient admitted to drinking EtOH. Patient denies CP, SOB, and any other physical complaints. In addition, patient adamantly denies drug use. Of note, patient is unsure if he took his blood pressure medication today. Per my discussion with patient's mother who called to discuss patient, he has been refusing to take his psych meds for over 1 month stating "I would rather ". He has been drinking heavily and becomes very physically aggressive with her and others when he drinks. He has not bathed in weeks and does not sleep. She feels that he is a harm to himself and potentially to others and that he needs help with his alcohol and psyh conditions. He has a hx of DTs. PCP: None Provided Past Medical History Reviewed: Historical Data, Nursing Documentation, Vital Signs Vital Signs: Last Vital Signs Temp 98.0 F 04/10/18 20:03 Pulse 94 H 04/10/18 20:03 Resp 16 04/10/18 20:03 BP 162/98 H 04/10/18 20:03 Pulse Ox 98 04/10/18 20:03 - Medical History PMH: Anxiety, Bipolar Disorder, Depression, HTN, Hypercholesterolemia Denies: Diabetes, Hepatitis, HIV, Seizures, Sexually Transmitted Disease - Surgical History Surgical History: No Surg Hx - Family History Family History: States: Unknown Family Hx - Social History Alcohol: > 2 Drinks/Day Drugs: Denies - Immunization History Hx Tetanus Toxoid Vaccination: No Hx Influenza Vaccination: No Hx Pneumococcal Vaccination: No - Home Medications Home Medications: Ambulatory Orders Medication Instructions Recorded Clonazepam 0.5 mg PO HS 09/19/17 Icosapent Ethyl [Vascepa] 2 gm PO Q12 09/19/17 Losartan/Hydrochlorothiazide 1 tab PO DAILY 09/19/17 [Hyzaar 100-12.5 Tablet] Risperidone [Risperdal] 2 mg PO DAILY 09/19/17 amLODIPine [Norvasc] 10 mg PO DAILY 09/19/17 Folic Acid 1 mg PO DAILY #30 tab 09/24/17 Lidocaine 2% Viscous 20 ml MM Q8 #1 bottle 09/24/17 Thiamine [Vitamin B1 Tab] 100 mg PO DAILY #30 tab 09/24/17 - Allergies Allergies/Adverse Reactions: Allergies Allergy/AdvReac Type Severity Reaction Status Date / Time No Known Allergies Allergy Verified 04/10/18 20:02 Review of Systems ROS Statement: Except As Marked, All Systems Reviewed And Found Negative Cardiovascular: Negative for: Chest Pain Respiratory: Negative for: Shortness of Breath Psych: Negative for: Suicidal ideation (or Homicidal Ideation), Other (Auditory Hallucinations) Physical Exam - Reviewed Nursing Documentation Reviewed: Yes Vital Signs Reviewed: Yes - Physical Exam Appears: Positive for: No Acute Distress Head Exam: Positive for: ATRAUMATIC, NORMAL INSPECTION, NORMOCEPHALIC Skin: Positive for: Normal Color Eye Exam: Positive for: Conjunctival injection (Bilaterally) ENT: Positive for: Normal ENT Inspection Neck: Positive for: Normal Cardiovascular/Chest: Positive for: Regular Rate, Rhythm Respiratory: Positive for: Normal Breath Sounds Gastrointestinal/Abdominal: Positive for: Normal Exam Extremity: Positive for: Normal ROM Neurologic/Psych: Positive for: Alert, Gait (Instability), Other (Slurred Speech). Negative for: Oriented - ECG O2 Sat by Pulse Oximetry: 98 (RA) Pulse Ox Interpretation: Normal Medical Decision Making Medical Decision Making: Time: 2025 Plan: EKG Alcohol Serum Urine Drug Screen U/A Crisis Evaluation Accucheck Patient became increasingly agitated and aggressive towards staff and security guards. Ativan 2 mg IM Haldol 5 mg IM 4 point restraints ordered. Serum ETOH: 383 @ 20:50 01:30: Normal Saline 1L fluid bolus ordered. Patient signed out to TERRI Tim pending clinical sobriety and crisis evaluation. Scribe Attestation: Documented by Kike Hemphill, acting as a scribe for Day MURRAY. Provider Scribe Attestation: All medical record entries made by the Scribe were at my direction and personally dictated by me. I have reviewed the chart and agree that the record accurately reflects my personal performance of the history, physical exam, medical decision making, and the department course for this patient. I have also personally directed, reviewed, and agree with the discharge instructions and disposition. Disposition - Clinical Impression Clinical Impression: Alcohol abuse with intoxication, Bipolar disorder - Patient ED Disposition Is Patient to be Admitted: Transfer of Care - Disposition Disposition: Transfer of Care Disposition Time: 01:30 Condition: FAIR Forms: [id number] (Welsh)
[2018-04-11] MEDS ORDERED: Sodium Chloride 0.9% 1,000 ML IV STA (01:31)
--- NOTE | 2018-04-11 04:40 | ED PDOC ---
- ECG O2 Sat by Pulse Oximetry: 98 (RA) - Progress ED Course And Treament: Case endorsed to marketing writer from Maggie [facility]UN[facility] pending sobriety, crisis eval 1:30 Patient sleeping; no distress 3:00 Patient sleeping; no distress 4:30 Patient sleeping; no distress 6:00 Patient awake, alert, oriented x3. 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
[2018-04-11 07:06] VITALS: BP 137/76; PULSE 89; O2SAT 100
== END 2018-04-11 07:38 | disposition home or self-care (01) ==
LOC: H.ER 20:00
DX: F10.129 Alcohol abuse with intoxication, unspecified (principal); F31.9 Bipolar disorder, unspecified; I10 Essential (primary) hypertension; Z79.899 Other long term (current) drug therapy; Y90.8 Blood alcohol level of 240 mg/100 ml or more; E78.00 Pure hypercholesterolemia, unspecified
CPT/HCPCS: 82948; 96372; 99285; G0480; J1630; J2060

== ENCOUNTER 2018-05-16 20:30 | Emergency (ER) | payer MEDICARE, OTHER ==
[2018-05-16 20:38] VITALS: RESP 18; O2SAT 99
--- NOTE | 2018-05-16 23:20 | ED PDOC ---
HPI: Psych/Substance Abuse Time Seen by Provider: 05/16/18 20:44 Chief Complaint (Nursing): Alcohol Ingestion History Per: Patient Additional Complaint(s): BIBA for aggressive behavior at home. Pt. admits to drinking alcohol (5-6 beers) today. Offers no complaints. Denies SI/HI, hallucinations. Past Medical History Reviewed: Historical Data, Nursing Documentation, Vital Signs Vital Signs: Last Vital Signs Temp 98.6 F 05/16/18 20:35 Pulse 78 05/16/18 20:35 Resp 18 05/16/18 20:35 BP 168/121 H 05/16/18 20:35 Pulse Ox 99 05/16/18 20:35 - Medical History PMH: Anxiety, Bipolar Disorder, Depression, HTN, Hypercholesterolemia Denies: Diabetes, Hepatitis, HIV, Seizures, Sexually Transmitted Disease - Surgical History Surgical History: No Surg Hx - Family History Family History: States: No Known Family Hx - Immunization History Hx Tetanus Toxoid Vaccination: No Hx Influenza Vaccination: No Hx Pneumococcal Vaccination: No - Home Medications Home Medications: Ambulatory Orders Medication Instructions Recorded amLODIPine [Norvasc] 10 mg PO DAILY 09/19/17 Thiamine [Vitamin B1 Tab] 100 mg PO DAILY #30 tab 09/24/17 Divalproex [Depakote ER] 1,000 mg PO DAILY 05/17/18 Naproxen [Naprosyn] 500 mg PO BID 05/17/18 - Allergies Allergies/Adverse Reactions: Allergies Allergy/AdvReac Type Severity Reaction Status Date / Time No Known Allergies Allergy Verified 04/10/18 20:02 Review of Systems ROS Statement: Except As Marked, All Systems Reviewed And Found Negative Physical Exam - Reviewed Nursing Documentation Reviewed: Yes Vital Signs Reviewed: Yes - Physical Exam Appears: Positive for: Well, Non-toxic, No Acute Distress Head Exam: Positive for: ATRAUMATIC, NORMAL INSPECTION, NORMOCEPHALIC Skin: Positive for: Normal Color, Warm. Negative for: Rash Eye Exam: Positive for: EOMI, Normal appearance, PERRL ENT: Positive for: Normal ENT Inspection Neck: Positive for: Normal, Painless ROM Cardiovascular/Chest: Positive for: Regular Rate, Rhythm Respiratory: Positive for: CNT, Normal Breath Sounds Gastrointestinal/Abdominal: Positive for: Normal Exam, Soft. Negative for: Tenderness Back: Positive for: Normal Inspection Extremity: Positive for: Normal ROM Neurologic/Psych: Positive for: Alert, Oriented, Other (slurred speech, AOB). Negative for: Aphasia, Facial Droop - ECG O2 Sat by Pulse Oximetry: 99 - Progress ED Course And Treament: Pt. attempting to leave ED with unsteady gait. Refusing to stay in ED room. Ativan 2mg IM, haldol 5mg IM, cardiac monitoring ordered. On re-evaluation, pt. sleeping comfortably. Easily arousable. Gait, steady, unassisted. Offers no complaints at this time. Denies SI/HI, hallucinations. Repeat BP: 137/88 as per RN. Disposition - Clinical Impression Clinical Impression: Alcohol intoxication - Patient ED Disposition Is Patient to be Admitted: No - Disposition Disposition: Routine/Home Disposition Time: 06:00 Condition: IMPROVED Instructions: Alcohol Abuse and Alcoholism (DC) Forms: [facility] (Pashto)
[2018-05-17 07:15] VITALS: BP 137/78; PULSE 74; TEMP 98.4
== END 2018-05-17 06:58 | disposition home or self-care (01) ==
LOC: H.ER 20:30
DX: F10.129 Alcohol abuse with intoxication, unspecified (principal); E78.00 Pure hypercholesterolemia, unspecified; F31.9 Bipolar disorder, unspecified; F41.9 Anxiety disorder, unspecified; I10 Essential (primary) hypertension; Z79.899 Other long term (current) drug therapy
CPT/HCPCS: 96372; 99284; G0480; J1630; J2060